=== PATIENT | female | born 1945 | race Caucasian/White ===

== ENCOUNTER 2017-10-05 13:42 | Emergency (ER) | payer MEDICARE ==
[2017-10-05] MEDS ORDERED: XYLOCAINE 1% HCL 20 ML MDV ONE (14:02)
[2017-10-05] MEDS ORDERED: Adacel Vial IM ONE (14:02)
--- NOTE | 2017-10-05 14:02 | ERPHSYRPT ---
- History of Present Illness Time Seen by Provider: 10/05/17 13:56 Source: patient Exam Limitations: no limitations Physician History: Pt states, she was moving a chalk board at home, lost the audiovisual tech, and it fell on her left lower leg. She denies other injury or complaints, not sure about her tetanus status. Method of Injury: incised Occurred: just prior to arrival Quality: constant Severity of Pain-Max: mild Severity of Pain-Current: mild Lower Extremities Pain: leg: left Modifying Factors: Improves With: movement Associated Symptoms: none Allergies/Adverse Reactions: No Known Drug Allergies Allergy (Verified 10/05/17 13:51) Home Medications: Carvedilol [Coreg] 3.125 mg PO BID 02/05/12 [History] PANTOPRAZOLE 40 mg Tablet [Protonix 40MG Tablet] 40 mg PO DAILY 02/05/12 [ History] Sertraline HCl 100 mg PO HS 10/05/17 [History] - Review of Systems Constitutional: No Symptoms Musculoskeletal: Other (laceration to left lower leg) All Other Systems: Reviewed and Negative - Past Medical History Pertinent Past Medical History: Yes Neurological History: No Pertinent History ENT History: No Pertinent History Cardiac History: High Cholesterol, Hypertension Respiratory History: No Pertinent History Endocrine Medical History: No Pertinent History Musculoskeletal History: No Pertinent History GI Medical History: GERD, Other History: No Pertinent History Psycho-Social History: No Pertinent History Female Reproductive Disorders: No Pertinent History Other Medical History: constipation,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 - Past Surgical History Past Surgical History: Yes Neuro Surgical History: No Pertinent History Cardiac: No Pertinent History Respiratory: No Pertinent History Gastrointestinal: No Pertinent History Genitourinary: No Pertinent History Musculoskeletal: No Pertinent History Female Surgical History: Hysterectomy - Social History Smoking Status: Never smoker Exposure to second hand smoke: Yes Drug Use: none - Nursing Vital Signs Nursing Vital Signs: Initial Vital Signs Temperature 98.7 F 10/05/17 13:44 Pulse Rate 68 10/05/17 13:44 Respiratory Rate 16 10/05/17 13:44 Blood Pressure 172/83 10/05/17 13:44 O2 Sat by Pulse Oximetry 97 10/05/17 13:44 Pain Scale Pain Intensity 4 - Physical Exam General Appearance: no apparent distress Eyes, Ears, Nose, Throat Exam: normal ENT inspection Neck Exam: normal inspection, non-tender Cardiovascular/Respiratory Exam: chest non-tender, normal breath sounds, regular rate/rhythm, heart sounds normal, no ecchymosis Gastrointestinal/Abdominal Exam: non-tender, soft Back Exam: normal inspection, No CVA tenderness Legs Exam: left leg: soft tissue tenderness (3 superficial lacerations, abrasions over the upper hernandez, 1 deeper, 2 cm laceration across the lower hernandez, no deformity, large hematoma or bleeding, no sign of tendon or neurovascular injury.) Neuro/Tendon Exam: normal sensation, normal motor functions Mental Status Exam: alert, oriented x 3 Skin Exam: normal color, warm, dry SpO2 Interpretation: normal Oxygen Delivery: Room Air Procedures - Laceration/Wound Repair Left Anterior Ankle Wound Location: Left, lower leg Wound Length (cm): 2 Wound's Depth, Shape: into muscle, linear Wound Explored: clean Irrigated: Yes Hibiclens Prep: No Anesthesia: local, 1% Lidocaine Volume Anesthetic (ccs): 5 Wound Repaired With: sutures Suture Size/Type: 4-0, ethilon Number of Sutures: 4 Layer Closure?: No Sterile Dressing Applied?: Yes Splint Applied?: No Sling Applied?: No Progress: 10/05/17 14:41 Laceration extended to the fascia, resulting in about 1 cm small laceration onto the muscular fascia, no significant deep bleeding noted, patient tolerated procedure well. - Course Nursing assessment & vital signs reviewed: Yes - Radiology Exams Left Lower Leg X-ray Interpretation: Interpreted by me, Negative Ordered Tests: Active Orders 24 hr Category Date Time Status Wound Care STAT Care 10/05/17 13:56 Active LOWER LEG Stat Exams 10/05/17 13:57 Completed Medication Summary Discontinued Medications Generic Name Dose Route Start Last Admin Trade Name Freq PRN Reason Stop Dose Admin Diphtheria/Tetanus/Acell Pertussis 0.5 ml 10/05/17 13:56 10/05/17 14:08 Adacel Vial IM 10/05/17 13:57 0.5 ml .ONCE ONE Administration Diphtheria/Tetanus/Acell Pertussis Confirm 10/05/17 14:02 Adacel Vial Administered 10/05/17 14:03 Dose 0.5 ml IM .STK-MED ONE Ibuprofen 400 mg 10/05/17 14:37 Motrin 400 Mg PO 10/05/17 14:38 STAT ONE Lidocaine HCl 5 ml 10/05/17 13:56 Xylocaine 1% Hcl 20 Ml Mdv IJ 10/05/17 13:57 STAT ONE Lidocaine HCl Confirm 10/05/17 14:02 Xylocaine 1% Hcl 20 Ml Mdv Administered 10/05/17 14:03 Dose 5 ml .ROUTE .STK-MED ONE - Progress Progress: improved Progress Note: 10/05/17 14:42 Pt has been stable, no severe pain or distress. 10/05/17 14:42 I instructed her to rest x 3-4 days with elevated leg, apply ice to leg, follow up with her doctor in 3-4 days for wound check, removal of the sutures after 2 weeks. Return if severe pain, swelling, redness, or fever> 102 F! Counseled pt/family regarding: diagnosis, need for follow-up, rad results - Departure Time of Disposition: 14:44 Departure Disposition: Home Clinical Impression: Laceration of leg Qualifiers: Encounter type: initial encounter Laterality: left Qualified Code(s): S81.812A - Laceration without foreign body, left lower leg, initial encounter Condition: Stable Critical Care Time: No Referrals: REBECCA ARREDONDO MD [Primary Care Provider] - Instructions: Laceration Repair With Stitches (DC) Additional Instructions: Rest with elevated leg x 3-4 days, apply ice to swelling, return if severe pain , swelling, redness, discharge or fever> 102 F, removal of the sutures after 2 weeks!
[2017-10-05] MEDS: Adacel Vial IM ONE (14:08)
--- NOTE | 2017-10-05 14:20 | XRAY ---
Indication: Laceration. Comparison: None 2 views of the left lower leg demonstrates overlying bandage material limiting exam. Small posterior heel spur and partially visualized forefoot fixation plate/screws. No bony, articular, or soft tissue abnormalities.
[2017-10-05] MEDS: XYLOCAINE 1% HCL 20 ML MDV IJ ONE (14:50)
[2017-10-05] MEDS: MOTRIN 400 MG PO ONE (14:50)
[2017-10-05] MEDS ORDERED: MOTRIN 400 MG ONE (14:51)
[2017-10-05 14:52] VITALS: BP 144/66; PULSE 64; O2SAT 99
== END 2017-10-05 15:03 | disposition home or self-care (01) ==
LOC: ED 13:42
DX: S81.812A Laceration without foreign body, left lower leg, initial encounter (principal); W22.8XXA Striking against or struck by other objects, initial encounter; Y92.009 Unspecified place in unspecified non-institutional (private) residence as the place of occurrence of the external cause; I10 Essential (primary) hypertension; K21.9 Gastro-esophageal reflux disease without esophagitis; Z85.828 Personal history of other malignant neoplasm of skin
CPT/HCPCS: 12001; 73590; 90471; 90715; 96372; 99284; A9270-GY

== ENCOUNTER 2023-05-12 21:49 | Observation (INO) | payer MEDICARE ==
--- NOTE | 2023-05-12 22:32 | ERPHSYRPT ---
- History of Present Illness Time Seen by Provider: 05/12/23 22:00 Source: patient Exam Limitations: no limitations Patient Subjective Stated Complaint: nauseated for 2 months worsening today. weight loss 30 pounds in 2 months. patient passed out for a few seconds while g etting onto ambulance cart. came back to immediately when laid down per ambulance personel Triage Nursing Assessment: hx of alzheimers. pt able to answer questions but was dx 7 years ago. pt actively vomiting and c/o nausea. when vomited in er room, pt began to lose consciousness but when bed put back down, patient Physician History: Patient is a 77-year-old female with history of Alzheimer's diagnosed 5 years ago that has gotten significantly worse over the past 2 to 3 months presents to our ED for evaluation of nausea vomiting and diarrhea. Patient's at the bedside. Patient's states that she had a similar episode several months back. Patient went to [facility] at that time. Patient was found to be profoundly dehydrated. states patient's p.o. has significantly decreased. He attributes this to her Alzheimer's. Patient now requires 24-hour care. No associated fevers. No trauma. No rash. Symptoms are mild to moderate in intensity. No specific worsening or improving factors. Patient voices no other complaints or concerns at this time. Per report patient had an episode of syncope just prior to arrival. Portions of this note were created with voice recognition technology. There may be grammatical, spelling, punctuation or sound alike errors Timing/Duration: today Severity: moderate Modifying Factors: Improves With: nothing Associated Symptoms: denies symptoms Allergies/Adverse Reactions: No Known Drug Allergies Allergy (Verified 10/05/17 13:51) Home Medications: PANTOPRAZOLE 40 mg Tablet [Protonix 40MG Tablet] 40 mg PO DAILY 02/05/12 [History] carvediloL [Coreg] 3.125 mg PO BID 02/05/12 [History] Sertraline HCl 100 mg PO HS 10/05/17 [History] Hx Tetanus, Diphtheria Vaccination/Date Given: Yes Hx Influenza Vaccination/Date Given: Yes Hx Pneumococcal Vaccination/Date Given: Yes Immunizations Up to Date: Yes Travel Risk - International Travel Have you traveled outside of the country in past 3 weeks: No - Coronavirus Screening Are you exhibiting any of the following symptoms?: Yes Symptoms: Vomiting/Diarrhea - Vaccine Status Have you recieved a Covid-19 vaccination: Yes Regional Driver: [employer] - Vaccination Dates Date of 2cond Vaccination (if applicable): 2020 - Review of Systems Constitutional: No Symptoms, No Fever, No Chills Eyes: No Symptoms Ears, Nose, & Throat: No Symptoms Respiratory: No Symptoms, No Cough, No Dyspnea Cardiac: No Symptoms, No Chest Pain, No Edema, No Syncope Abdominal/Gastrointestinal: No Symptoms, No Abdominal Pain, No Nausea, No Vomiting, No Diarrhea Genitourinary Symptoms: No Symptoms, No Dysuria Musculoskeletal: No Symptoms, No Back Pain, No Neck Pain Skin: No Symptoms, No Rash Neurological: No Symptoms, No Dizziness, No Focal Weakness, No Sensory Changes Psychological: No Symptoms Endocrine: No Symptoms Hematologic/Lymphatic: No Symptoms Immunological/Allergic: No Symptoms All Other Systems: Reviewed and Negative - Past Medical History Pertinent Past Medical History: Yes Neurological History: No Pertinent History ENT History: No Pertinent History Cardiac History: High Cholesterol, Hypertension Respiratory History: No Pertinent History Endocrine Medical History: No Pertinent History Musculoskeletal History: No Pertinent History GI Medical History: GERD, Other History: No Pertinent History Psycho-Social History: No Pertinent History Female Reproductive Disorders: No Pertinent History Other Medical History: constipation,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 - Past Surgical History Past Surgical History: Yes Neuro Surgical History: No Pertinent History Cardiac: No Pertinent History Respiratory: No Pertinent History Gastrointestinal: No Pertinent History Genitourinary: No Pertinent History Musculoskeletal: No Pertinent History Female Surgical History: Hysterectomy Other Surgical History: tear duct removed - Social History Smoking Status: Never smoker Exposure to second hand smoke: Yes Drug Use: none Patient Lives Alone: No - Nursing Vital Signs Nursing Vital Signs: Initial Vital Signs Temperature 97.1 F 05/12/23 21:52 Pulse Rate 53 L 05/12/23 21:52 Respiratory Rate 18 05/12/23 21:52 Blood Pressure 193/71 05/12/23 21:52 O2 Sat by Pulse Oximetry 97 05/12/23 21:52 Pain Scale Pain Intensity 0 - Physical Exam General Appearance: no apparent distress, alert Eye Exam: PERRL/EOMI, eyes nml inspection Ears, Nose, Throat Exam: normal ENT inspection, TMs normal, pharynx normal, moist mucous membranes Neck Exam: normal inspection, non-tender, supple, full range of motion Respiratory Exam: normal breath sounds, lungs clear, No respiratory distress Cardiovascular Exam: regular rate/rhythm, normal heart sounds, normal peripheral pulses Gastrointestinal/Abdomen Exam: soft, normal bowel sounds, No tenderness, No mass Back Exam: normal inspection, normal range of motion, No CVA tenderness, No vertebral tenderness Extremity Exam: normal inspection, normal range of motion, pelvis stable Neurologic Exam: alert, oriented x 3, cooperative, normal mood/affect, nml cerebellar function, nml station & gait, sensation nml, No motor deficits Skin Exam: normal color, warm, dry, No rash Lymphatic Exam: No adenopathy SpO2 Interpretation: normal SpO2: 97 O2 Delivery: Room Air - Course Nursing assessment & vital signs reviewed: Yes Ordered Tests: Active Orders 24 hr Category Date Time Status IV Insertion STAT Care 05/12/23 22:27 Active Telemetry q4h Care 05/12/23 23:31 Active CBC W DIFF Stat Lab 05/12/23 22:57 Completed CMP Stat Lab 05/12/23 22:57 Completed CULTURE,URINE Stat Lab 05/12/23 23:21 Received LIPASE Stat Lab 05/12/23 22:57 Completed TROPONIN Q4H Lab 05/12/23 22:57 Completed TROPONIN Q4H Lab 05/13/23 02:30 Ordered TROPONIN Q4H Lab 05/13/23 06:30 Ordered UA W/RFX UR CULTURE Stat Lab 05/12/23 23:21 Completed Medication Summary Generic Name Dose Route Start Last Admin Trade Name Freq PRN Reason Stop Dose Admin Sodium Chloride 1,000 mls @ 100 mls/hr 05/12/23 22:30 05/12/23 23:15 Sodium Chloride 0.9% 1000 Ml IV 06/11/23 22:29 100 mls/hr .Q10H AKASH Administration Potassium Chloride 20 meq in 100 mls @ 50 mls/hr 05/12/23 23:45 05/12/23 23:40 Potassium Chloride 20 Meq In Water 100ml IV 05/13/23 03:44 50 mls/hr Q2H AKASH Administration Magnesium Sulfate/Dextrose 100 mls @ 100 mls/hr 05/12/23 23:45 05/12/23 23:39 Magnesium 1 Gm / 100 Ml D5w IV 05/13/23 01:44 100 mls/hr Q1H AKASH Administration Lab/Rad Data: Laboratory Result Diagrams 05/12/23 22:57 05/12/23 22:57 Laboratory Results 05/12/23 05/12/23 05/12/23 Range/Units 23:21 23:00 22:57 WBC (4.0-10.5) x10^3/uL RBC (4.1-5.4) x10^6/uL Hgb (12.0-16.0) g/dL Hct (35-47) % MCV (78-100) fL MCH (26-32) pg MCHC (32-36) g/dL RDW (11.5-14.0) % Plt Count (150-450) x10^3/uL MPV (7.5-11.0) fL Gran % (36.0-66.0) % Immature Gran % (Auto) (0.00-0.4) % Nucleat RBC Rel Count (0.00-0.1) % Eos # (Auto) (0-0.5) x10^3/uL Immature Gran # (Auto) (0.00-0.03) x10^3u/L Absolute Lymphs (auto) (1.0-4.6) x10^3/uL Absolute Monos (auto) (0.0-1.3) x10^3/uL Absolute Nucleated RBC (0.00-0.01) x10^3u/L Lymphocytes % (24.0-44.0) % Monocytes % (0.0-12.0) % Eosinophils % (0.00-5.0) % Basophils % (0.0-0.4) % Absolute Granulocytes (1.4-6.9) x10^3/uL Basophils # (0-0.4) x10^3/uL Sodium (137-145) mmol/L Potassium (3.5-5.1) mmol/L Chloride (98-107) mmol/L Carbon Dioxide (22-30) mmol/L Anion Gap (5-15) MEQ/L BUN (7-17) mg/dL Creatinine (0.52-1.04) mg/dL Estimated GFR ML/MIN Glucose (74-106) mg/dL Calcium (8.4-10.2) mg/dL Total Bilirubin (0.2-1.3) mg/dL AST (14-36) U/L ALT (0-35) U/L Alkaline Phosphatase (38-126) U/L Troponin I 0.014 (0.000-0.034) ng/mL Serum Total Protein (6.3-8.2) g/dL Albumin (3.5-5.0) g/dL Lipase (23-300) U/L Urine Color Yellow (Yellow) Urine Appearance Clear (Clear) Urine pH 7.5 (4.6-8.0) Ur Specific [place] 1.010 (1.005-1.030) Urine Protein 30 (Negative) Urine Glucose (UA) Negative (Negative) mg/dL Urine Ketones Negative (Negative) Urine Blood Trace (Negative) Urine Nitrite Positive A (Negative) Urine Bilirubin Negative (Negative) Urine Urobilinogen 0.2 (0.2) mg/dL Ur Leukocyte Esterase Small A (Negative) U Hyaline Cast (Auto) 3-5 A (0-2) /LPF Urine Microscopic RBC 3-5 (0-5) /HPF Urine Microscopic WBC 21-50 A (0-5) /HPF Ur Epithelial Cells None Seen (None Seen) /HPF Urine Bacteria Many A (None Seen) /HPF Urine Culture Reflexed YES (NO) Influenza Type A Ag NEGATIVE (NEGATIVE) Influenza Type B Ag NEGATIVE (NEGATIVE) RSV (PCR) NEGATIVE (NEGATIVE) SARS-CoV-2 (PCR) NEGATIVE (NEGATIVE) 05/12/23 05/12/23 Range/Units 22:57 22:57 WBC 11.5 H (4.0-10.5) x10^3/uL RBC 4.64 (4.1-5.4) x10^6/uL Hgb 13.3 (12.0-16.0) g/dL Hct 39.6 (35-47) % MCV 85.3 (78-100) fL MCH 28.7 (26-32) pg MCHC 33.6 (32-36) g/dL RDW 13.5 (11.5-14.0) % Plt Count 169 (150-450) x10^3/uL MPV 10.4 (7.5-11.0) fL Gran % 78.9 H (36.0-66.0) % Immature Gran % (Auto) 0.4 (0.00-0.4) % Nucleat RBC Rel Count 0.0 (0.00-0.1) % Eos # (Auto) 0.20 (0-0.5) x10^3/uL Immature Gran # (Auto) 0.05 H (0.00-0.03) x10^3u/L Absolute Lymphs (auto) 1.53 (1.0-4.6) x10^3/uL Absolute Monos (auto) 0.57 (0.0-1.3) x10^3/uL Absolute Nucleated RBC 0.00 (0.00-0.01) x10^3u/L Lymphocytes % 13.3 L (24.0-44.0) % Monocytes % 5.0 (0.0-12.0) % Eosinophils % 1.7 (0.00-5.0) % Basophils % 0.7 (0.0-0.4) % Absolute Granulocytes 9.07 H (1.4-6.9) x10^3/uL Basophils # 0.08 (0-0.4) x10^3/uL Sodium 134 L (137-145) mmol/L Potassium 2.7 L* (3.5-5.1) mmol/L Chloride 98 (98-107) mmol/L Carbon Dioxide 33 H (22-30) mmol/L Anion Gap 5.9 (5-15) MEQ/L BUN 6 L (7-17) mg/dL Creatinine 0.52 (0.52-1.04) mg/dL Estimated GFR 95.0 ML/MIN Glucose 169 H (74-106) mg/dL Calcium 9.0 (8.4-10.2) mg/dL Total Bilirubin 0.70 (0.2-1.3) mg/dL AST 62 H (14-36) U/L ALT 36 H (0-35) U/L Alkaline Phosphatase 133 H (38-126) U/L Troponin I (0.000-0.034) ng/mL Serum Total Protein 6.6 (6.3-8.2) g/dL Albumin 3.5 (3.5-5.0) g/dL Lipase 114 (23-300) U/L Urine Color (Yellow) Urine Appearance (Clear) Urine pH (4.6-8.0) Ur Specific [place] (1.005-1.030) Urine Protein (Negative) Urine Glucose (UA) (Negative) mg/dL Urine Ketones (Negative) Urine Blood (Negative) Urine Nitrite (Negative) Urine Bilirubin (Negative) Urine Urobilinogen (0.2) mg/dL Ur Leukocyte Esterase (Negative) U Hyaline Cast (Auto) (0-2) /LPF Urine Microscopic RBC (0-5) /HPF Urine Microscopic WBC (0-5) /HPF Ur Epithelial Cells (None Seen) /HPF Urine Bacteria (None Seen) /HPF Urine Culture Reflexed (NO) Influenza Type A Ag (NEGATIVE) Influenza Type B Ag (NEGATIVE) RSV (PCR) (NEGATIVE) SARS-CoV-2 (PCR) (NEGATIVE) - Progress Progress: improved Progress Note: 69-year-old female presents emergency department for evaluation of nausea vomiting diarrhea generalized weakness. Physical exam reveals a 77-year-old female complaining of nausea. No abdominal pain. Patient conversant. at bedside. He reports patient has a baseline dementia. Workup reveals a potassium of 2.7. IV piggyback potassium ordered. Magnesium replacement ordered as well. IV fluids infusing. requesting home health prior to discharge. Case discussed with Dr. Bhargavi Good who accepts admission to observation at 12:18 AM. Portions of this note were created with voice recognition technology. There may be grammatical, spelling, punctuation or sound alike errors Complexity of problem addressed is moderate acute complicated No critical care time Complexity of data reviewed and analyzed is extensive. Test ordered test reviewed. Results analyzed and correlated clinically with history and physical examination. Management discussed with hospitalist Dr. Bhargavi Good who accepts admission to observation at 12:18 AM. Risk complication and a risk of morbidity/mortality of patient management is high. Patient requires hospitalization for further evaluation and treatment. Portions of this note were created with voice recognition technology. There may be grammatical, spelling, punctuation or sound alike errors Vital stable. Time spent admit patient is approximately 15 minutes. Plan of care established for shared decision making. No social determinants of health present impede follow-up. Portions of this note were created with voice recognition technology. There may be grammatical, spelling, punctuation or sound alike errors 05/13/23 00:21 Counseled pt/family regarding: lab results, diagnosis - Departure Departure Disposition: Observation Clinical Impression: Nausea vomiting and diarrhea, Syncope, Generalized weakness, UTI (urinary tract infection) Condition: Stable Critical Care Time: No Referrals: REBECCA ARREDONDO MD [Primary Care Provider] - Follow up/PCP as directed
[2023-05-12 22:59] LABS: Absolute Neutrophil Ct (ANC) 9.07 x10^3/uL (1.4-6.9); BASOPHIL % 0.7 % (0.0-0.4); Basophil (Absolute #) 0.08 x10^3/uL (0-0.4); Eosinophil % 1.7 % (0.00-5.0); Hematocrit 39.6 % (35-47); Hemoglobin 13.3 g/dL (12.0-16.0); IMMATURE GRAN # 0.05 x10^3u/L (0.00-0.03); IMMATURE GRAN % 0.4 % (0.00-0.4); Lymphocyte (Absolute #) 1.53 x10^3/uL (1.0-4.6); Lymphocytes % 13.3 % (24.0-44.0); Mean Cell Volume 85.3 fL (78-100); Mean Corpuscular Hemoglobin 28.7 pg (26-32); Mean Corpuscular Hgb Concent. 33.6 g/dL (32-36); Mean Platelet Volume 10.4 fL (7.5-11.0); Monocyte (Absolute #) 0.57 x10^3/uL (0.0-1.3); Neutrophil % 78.9 % (36.0-66.0); Platelet Count 169 x10^3/uL (150-450); Red Blood Count 4.64 x10^6/uL (4.1-5.4); Red Cell Distribution Width 13.5 % (11.5-14.0); White Blood Count 11.5 x10^3/uL (4.0-10.5)
[2023-05-12 23:13] LABS: ALBUMIN 3.5 g/dL (3.5-5.0); ANION GAP 5.9 MEQ/L (5-15); BILIRUBIN,TOTAL 0.7 mg/dL (0.2-1.3); Creatinine 1 0.52 mg/dL (0.52-1.04); Total Protein 6.6 g/dL (6.3-8.2)
[2023-05-12] MEDS: Sodium Chloride 0.9% 1000 ML 1,000 ML IV SCH (23:15)
[2023-05-12 23:28] LABS: Potassium 2.7 mmol/L (3.5-5.1)
[2023-05-12] MEDS: Magnesium 1 Gm / 100 Ml D5W*** 100 ML IV SCH (23:39)
[2023-05-12 23:40] LABS: INFLUENZA A NEGATIVE (NEGATIVE); INFLUENZA B NEGATIVE (NEGATIVE); RESPIRATORY SYNCTIAL VIRUS NEGATIVE (NEGATIVE); SARS-CoV-2 Xpert Express NEGATIVE (NEGATIVE)
[2023-05-12] MEDS: POTASSIUM CHLORIDE 20 mEq IN WATER 100ML 20 MEQ/100 ML BAG IV SCH (23:40)
[2023-05-12 23:54] LABS: Appearance Clear (Clear); Bacteria Many /HPF (None Seen); Bilirubin Negative (Negative); Blood Trace (Negative); Epithelial Cells None Seen /HPF (None Seen); Glucose, Urine Negative (Negative); Ketones Negative (Negative); Leukocyte Esterase Small (Negative); Nitrite Positive (Negative); Ph 7.5 (4.6-8.0); Protein,Urine Dip 30 (Negative); Urobilinogen 0.2 mg/dL (0.2); WBC 21-50 /HPF (0-5)
[2023-05-13 00:08] LABS: ADD URINE CULTURE? YES (NO)
--- NOTE | 2023-05-13 00:22 | PCM.HP ---
History of Present Illness - Chief Complaint Chief Complaint: Nausea, Vomiting, Diarrhea History of Present Illness: is a 77 year old female with Alzheimer's dementia diagnosed 5 years ago who presents with nausea, vomiting, diarrhea and a possible UTI. Per , the patient had a similar episodes a few months ago and was found to have profound dehydration. Pt requires 24-hr care. No fevers, rash, trauma. - Review of Systems Constitutional: No Fever, No Chills Eyes: No Symptoms Ears, Nose, & Throat: No Symptoms Respiratory: No Cough, No Short Of Breath Cardiac: No Chest Pain, No Edema, No Syncope Abdominal/Gastrointestinal: No Abdominal Pain, No Nausea, No Vomiting, No Diarrhea Genitourinary Symptoms: No Dysuria Musculoskeletal: No Back Pain, No Neck Pain Skin: No Rash Neurological: No Dizziness, No Focal Weakness, No Sensory Changes Psychological: No Symptoms Endocrine: No Symptoms Hematologic/Lymphatic: No Symptoms Immunological/Allergic: No Symptoms Medications & Allergies Home Medications: Home Medication List PANTOPRAZOLE 40 mg Tablet [Protonix 40MG Tablet] 40 mg PO DAILY 02/05/12 [History Confirmed 10/05/17] carvediloL [Coreg] 3.125 mg PO BID 02/05/12 [History Confirmed 10/05/17] Sertraline HCl 100 mg PO HS 10/05/17 [History Confirmed 10/05/17] Allergies/Adverse Reactions: Allergies Allergy/AdvReac Type Severity Reaction Status Date / Time No Known Drug Allergies Allergy Verified 10/05/17 13:51 - Past Medical History Past Medical History: Yes Neurological History: No Pertinent History ENT History: No Pertinent History Cardiac History: High Cholesterol, Hypertension Respiratory History: No Pertinent History Endocrine Medical History: No Pertinent History Musculoskelatal History: No Pertinent History GI Medical History: GERD, Other History: No Pertinent History Pyscho-Social History: No Pertinent History Reproductive Disorders: No Pertinent History Comment: constipation,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 - Past Surgical History Past Surgical History: Yes Neuro Surgical History: No Pertinent History Cardiac History: No Pertinent History Respiratory Surgery: No Pertinent History GI Surgical History: No Pertinent History Genitourinary Surgical Hx: No Pertinent History Musculskeletal Surgical Hx: No Pertinent History Female Surgical History: Hysterectomy Other Surgical History: tear duct removed - Social History Smoking Status: Never smoker Exposure to second hand smoke: Yes Alcohol: None Drug Use: none - Physical Exam Vital Signs: Vital Signs - 24 hr Temp Pulse Resp BP BP Pulse Ox 05/12/23 23:48 97 05/12/23 23:26 55 L 18 184/78 97 05/12/23 23:25 56 L 18 184/78 97 05/12/23 21:52 97.1 F 53 L 18 193/71 97 General Appearance: no apparent distress, alert Neurologic Exam: alert, oriented x 3, cooperative, normal mood/affect, nml cerebellar function, nml station & gait, sensation nml, No motor deficits Eye Exam: PERRL/EOMI, eyes nml inspection Ears, Nose, Throat Exam: normal ENT inspection, TMs normal, pharynx normal, moist mucous membranes Neck Exam: normal inspection, non-tender, supple, full range of motion Respiratory Exam: normal breath sounds, lungs clear, No respiratory distress Cardiovascular Exam: regular rate/rhythm, normal heart sounds, normal peripheral pulses Gastrointestinal/Abdomen Exam: soft, normal bowel sounds, No tenderness, No mass Back Exam: normal inspection, normal range of motion, No CVA tenderness, No vertebral tenderness Extremity Exam: normal inspection, normal range of motion, pelvis stable Skin Exam: normal color, warm, dry, No rash Lymphatic Exam: No adenopathy Results - Labs Lab/Micro Results: Lab Results-Last 24 Hours 05/12/23 05/12/23 05/12/23 Range/Units 22:57 22:57 22:57 WBC 11.5 H (4.0-10.5) x10^3/uL RBC 4.64 (4.1-5.4) x10^6/uL Hgb 13.3 (12.0-16.0) g/dL Hct 39.6 (35-47) % MCV 85.3 (78-100) fL MCH 28.7 (26-32) pg MCHC 33.6 (32-36) g/dL RDW 13.5 (11.5-14.0) % Plt Count 169 (150-450) x10^3/uL MPV 10.4 (7.5-11.0) fL Gran % 78.9 H (36.0-66.0) % Immature Gran % (Auto) 0.4 (0.00-0.4) % Nucleat RBC Rel Count 0.0 (0.00-0.1) % Eos # (Auto) 0.20 (0-0.5) x10^3/uL Immature Gran # (Auto) 0.05 H (0.00-0.03) x10^3u/L Absolute Lymphs (auto) 1.53 (1.0-4.6) x10^3/uL Absolute Monos (auto) 0.57 (0.0-1.3) x10^3/uL Absolute Nucleated RBC 0.00 (0.00-0.01) x10^3u/L Lymphocytes % 13.3 L (24.0-44.0) % Monocytes % 5.0 (0.0-12.0) % Eosinophils % 1.7 (0.00-5.0) % Basophils % 0.7 (0.0-0.4) % Absolute Granulocytes 9.07 H (1.4-6.9) x10^3/uL Basophils # 0.08 (0-0.4) x10^3/uL Sodium 134 L (137-145) mmol/L Potassium 2.7 L* (3.5-5.1) mmol/L Chloride 98 (98-107) mmol/L Carbon Dioxide 33 H (22-30) mmol/L Anion Gap 5.9 (5-15) MEQ/L BUN 6 L (7-17) mg/dL Creatinine 0.52 (0.52-1.04) mg/dL Estimated GFR 95.0 ML/MIN Glucose 169 H (74-106) mg/dL Calcium 9.0 (8.4-10.2) mg/dL Total Bilirubin 0.70 (0.2-1.3) mg/dL AST 62 H (14-36) U/L ALT 36 H (0-35) U/L Alkaline Phosphatase 133 H (38-126) U/L Troponin I 0.014 (0.000-0.034) ng/mL Serum Total Protein 6.6 (6.3-8.2) g/dL Albumin 3.5 (3.5-5.0) g/dL Lipase 114 (23-300) U/L Urine Color (Yellow) Urine Appearance (Clear) Urine pH (4.6-8.0) Ur Specific [place] (1.005-1.030) Urine Protein (Negative) Urine Glucose (UA) (Negative) mg/dL Urine Ketones (Negative) Urine Blood (Negative) Urine Nitrite (Negative) Urine Bilirubin (Negative) Urine Urobilinogen (0.2) mg/dL Ur Leukocyte Esterase (Negative) U Hyaline Cast (Auto) (0-2) /LPF Urine Microscopic RBC (0-5) /HPF Urine Microscopic WBC (0-5) /HPF Ur Epithelial Cells (None Seen) /HPF Urine Bacteria (None Seen) /HPF Urine Culture Reflexed (NO) Influenza Type A Ag (NEGATIVE) Influenza Type B Ag (NEGATIVE) RSV (PCR) (NEGATIVE) SARS-CoV-2 (PCR) (NEGATIVE) 05/12/23 05/12/23 Range/Units 23:00 23:21 WBC (4.0-10.5) x10^3/uL RBC (4.1-5.4) x10^6/uL Hgb (12.0-16.0) g/dL Hct (35-47) % MCV (78-100) fL MCH (26-32) pg MCHC (32-36) g/dL RDW (11.5-14.0) % Plt Count (150-450) x10^3/uL MPV (7.5-11.0) fL Gran % (36.0-66.0) % Immature Gran % (Auto) (0.00-0.4) % Nucleat RBC Rel Count (0.00-0.1) % Eos # (Auto) (0-0.5) x10^3/uL Immature Gran # (Auto) (0.00-0.03) x10^3u/L Absolute Lymphs (auto) (1.0-4.6) x10^3/uL Absolute Monos (auto) (0.0-1.3) x10^3/uL Absolute Nucleated RBC (0.00-0.01) x10^3u/L Lymphocytes % (24.0-44.0) % Monocytes % (0.0-12.0) % Eosinophils % (0.00-5.0) % Basophils % (0.0-0.4) % Absolute Granulocytes (1.4-6.9) x10^3/uL Basophils # (0-0.4) x10^3/uL Sodium (137-145) mmol/L Potassium (3.5-5.1) mmol/L Chloride (98-107) mmol/L Carbon Dioxide (22-30) mmol/L Anion Gap (5-15) MEQ/L BUN (7-17) mg/dL Creatinine (0.52-1.04) mg/dL Estimated GFR ML/MIN Glucose (74-106) mg/dL Calcium (8.4-10.2) mg/dL Total Bilirubin (0.2-1.3) mg/dL AST (14-36) U/L ALT (0-35) U/L Alkaline Phosphatase (38-126) U/L Troponin I (0.000-0.034) ng/mL Serum Total Protein (6.3-8.2) g/dL Albumin (3.5-5.0) g/dL Lipase (23-300) U/L Urine Color Yellow (Yellow) Urine Appearance Clear (Clear) Urine pH 7.5 (4.6-8.0) Ur Specific [place] 1.010 (1.005-1.030) Urine Protein 30 (Negative) Urine Glucose (UA) Negative (Negative) mg/dL Urine Ketones Negative (Negative) Urine Blood Trace (Negative) Urine Nitrite Positive A (Negative) Urine Bilirubin Negative (Negative) Urine Urobilinogen 0.2 (0.2) mg/dL Ur Leukocyte Esterase Small A (Negative) U Hyaline Cast (Auto) 3-5 A (0-2) /LPF Urine Microscopic RBC 3-5 (0-5) /HPF Urine Microscopic WBC 21-50 A (0-5) /HPF Ur Epithelial Cells None Seen (None Seen) /HPF Urine Bacteria Many A (None Seen) /HPF Urine Culture Reflexed YES (NO) Influenza Type A Ag NEGATIVE (NEGATIVE) Influenza Type B Ag NEGATIVE (NEGATIVE) RSV (PCR) NEGATIVE (NEGATIVE) SARS-CoV-2 (PCR) NEGATIVE (NEGATIVE) Assessment/Plan (1) Nausea vomiting and diarrhea Current Visit: Yes Status: Acute Assessment & Plan: Likely viral vs due to a possible UTI 1. IVF, Zofran PRN 2. Received rocephin in the ED 3. Follow urine culture Code(s): R11.2 - NAUSEA WITH VOMITING, UNSPECIFIED; R19.7 - DIARRHEA, UNSPECIFIED (2) Alzheimer's dementia Current Visit: Yes Status: Acute Assessment & Plan: 1. Consult SW in the AM for home health vs care home at time of discharge Code(s): G30.9 - ALZHEIMER'S DISEASE, UNSPECIFIED; F02.80 - DEM IN OTH DIS CLASSD ELSWHR,UNSP SEV,W/O BEH/PSYCH/MOOD/ANX (3) Alzheimer's dementia Current Visit: Yes Status: Acute Code(s): G30.9 - ALZHEIMER'S DISEASE, UNSPECIFIED; F02.80 - DEM IN OTH DIS CLASSD ELSWHR,UNSP SEV,W/O BEH/PSYCH/MOOD/ANX Telemedicine Encounter - Telemedicine Encounter Telemedicine Encounter: The entirety of this encounter was performed via Telemedicine"
[2023-05-13] MEDS ORDERED: ROCEPHIN 1 GM / 100 ML NaCl 1 GM/100 ML IVPB IV ONE (02:11)
[2023-05-13] MEDS: Zofran 4 MG/2 ML VIAL IV PRN (02:13)
[2023-05-13] MEDS: ROCEPHIN 1 GM / 100 ML NaCl 1 GM/100 ML IVPB IV ONE (02:17)
--- NOTE | 2023-05-13 05:16 | PCM.NOTE ---
Date and Time: 05/13/23 0516 Subjective Assessment: is a 77 year old female with HLD, GERN, and Alzheimer's dementia diagnosed 5 years ago who presents with nausea, vomiting, diarrhea and a possible UTI. Lab findings with WBC at 11.5, hyponatremia at 134, potassium at 2.7, transaminitis, and elevated trop at 0.102. UA suspicious for UTI. Patient admitted with UTI, hyponatremia, nausea/vomiting, transaminitis, and elevated troponin. Plan to hydrate, treat UTI with ceftriaxone empirically, and monitor trops and LFTs. CT head showing parasellar pneumocephalus, neuro consult pending. 05/13/23: Met with patient and bedside. Patient continues to endorse nausea, which has been going on for several months according to . Patient not eating/drinking much. states he has stage 4 colon cancer and having a very difficult time caring for patient at home. Discussed CT head findings showing parasellar pneumocephalus. Patient/ deny any recent trauma or neurosurgery. Will consult neurology for evaluation. Patient denies urinary symptoms, Ucult pending, will continue on ceftriaxone for now. <LAKHWINDER HOLLY - Last Filed: 05/13/23 12:47> Date and Time: 05/13/232013 <NELDA JOEL - Last Filed: 05/13/23 20:17> - Review of Systems Constitutional: No Symptoms Eyes: No Symptoms Ears, Nose, & Throat: No Symptoms Respiratory: No Symptoms Cardiac: No Symptoms Abdominal/Gastrointestinal: No Symptoms Genitourinary Symptoms: No Symptoms Musculoskeletal: No Symptoms Skin: No Symptoms Neurological: No Symptoms Psychological: No Symptoms Endocrine: No Symptoms Hematologic/Lymphatic: No Symptoms Immunological/Allergic: No Symptoms <LAKHWINDER HOLLY - Last Filed: 05/13/23 12:47> Objective Exam General Appearance: no apparent distress Neurologic Exam: alert, disoriented, confusion Skin Exam: normal color Wound Assessment: Skin/Wound Assessment Wound/Incision Assessment Start: 05/13/23 01:36 Text: Status: Active Freq: Q6H Protocol: Document 05/13/23 01:36 MP (Rec: 05/13/23 03:45 MP [id number]) Wound Photo Photo Taken No Eye Exam: PERRL Ears, Nose, Throat Exam: normal ENT inspection Neck Exam: normal inspection Respiratory Exam: normal breath sounds, lungs clear Cardiovascular Exam: regular rate/rhythm, normal heart sounds Gastrointestinal/Abdomen Exam: soft, normal bowel sounds Extremity Exam: normal inspection Back Exam: normal inspection Pelvic Exam: deferred Rectal Exam: deferred <LAKHWINDER HOLLY - Last Filed: 05/13/23 12:47> OBJECTIVE DATA Vital Signs: Vital Signs - 24 hr Temp Pulse Resp BP BP Pulse Ox 05/13/23 04:00 16 05/13/23 01:11 95.8 F 58 L 16 178/79 97 05/13/23 00:35 97 05/13/23 00:25 97 05/12/23 23:26 55 L 18 184/78 97 05/12/23 23:25 56 L 18 184/78 97 05/12/23 21:52 97.1 F 53 L 18 193/71 97 Pain Assessment - Last Documented Pain Intensity 0 Intake and Output: Intake & Output 05/10/23 05/11/23 05/12/23 05/13/23 11:59 11:59 11:59 11:59 Weight 50.1 kg Lab Results: Lab Results-Last 24 Hours 05/12/23 05/12/23 05/12/23 Range/Units 22:57 22:57 22:57 WBC 11.5 H (4.0-10.5) x10^3/uL RBC 4.64 (4.1-5.4) x10^6/uL Hgb 13.3 (12.0-16.0) g/dL Hct 39.6 (35-47) % MCV 85.3 (78-100) fL MCH 28.7 (26-32) pg MCHC 33.6 (32-36) g/dL RDW 13.5 (11.5-14.0) % Plt Count 169 (150-450) x10^3/uL MPV 10.4 (7.5-11.0) fL Gran % 78.9 H (36.0-66.0) % Immature Gran % (Auto) 0.4 (0.00-0.4) % Nucleat RBC Rel Count 0.0 (0.00-0.1) % Eos # (Auto) 0.20 (0-0.5) x10^3/uL Immature Gran # (Auto) 0.05 H (0.00-0.03) x10^3u/L Absolute Lymphs (auto) 1.53 (1.0-4.6) x10^3/uL Absolute Monos (auto) 0.57 (0.0-1.3) x10^3/uL Absolute Nucleated RBC 0.00 (0.00-0.01) x10^3u/L Lymphocytes % 13.3 L (24.0-44.0) % Monocytes % 5.0 (0.0-12.0) % Eosinophils % 1.7 (0.00-5.0) % Basophils % 0.7 (0.0-0.4) % Absolute Granulocytes 9.07 H (1.4-6.9) x10^3/uL Basophils # 0.08 (0-0.4) x10^3/uL Sodium 134 L (137-145) mmol/L Potassium 2.7 L* (3.5-5.1) mmol/L Chloride 98 (98-107) mmol/L Carbon Dioxide 33 H (22-30) mmol/L Anion Gap 5.9 (5-15) MEQ/L BUN 6 L (7-17) mg/dL Creatinine 0.52 (0.52-1.04) mg/dL Estimated GFR 95.0 ML/MIN Glucose 169 H (74-106) mg/dL Calcium 9.0 (8.4-10.2) mg/dL Total Bilirubin 0.70 (0.2-1.3) mg/dL AST 62 H (14-36) U/L ALT 36 H (0-35) U/L Alkaline Phosphatase 133 H (38-126) U/L Troponin I 0.014 (0.000-0.034) ng/mL Serum Total Protein 6.6 (6.3-8.2) g/dL Albumin 3.5 (3.5-5.0) g/dL Lipase 114 (23-300) U/L Urine Color (Yellow) Urine Appearance (Clear) Urine pH (4.6-8.0) Ur Specific [place] (1.005-1.030) Urine Protein (Negative) Urine Glucose (UA) (Negative) mg/dL Urine Ketones (Negative) Urine Blood (Negative) Urine Nitrite (Negative) Urine Bilirubin (Negative) Urine Urobilinogen (0.2) mg/dL Ur Leukocyte Esterase (Negative) U Hyaline Cast (Auto) (0-2) /LPF Urine Microscopic RBC (0-5) /HPF Urine Microscopic WBC (0-5) /HPF Ur Epithelial Cells (None Seen) /HPF Urine Bacteria (None Seen) /HPF Urine Culture Reflexed (NO) Influenza Type A Ag (NEGATIVE) Influenza Type B Ag (NEGATIVE) RSV (PCR) (NEGATIVE) SARS-CoV-2 (PCR) (NEGATIVE) 05/12/23 05/12/23 05/13/23 Range/Units 23:00 23:21 02:54 WBC (4.0-10.5) x10^3/uL RBC (4.1-5.4) x10^6/uL Hgb (12.0-16.0) g/dL Hct (35-47) % MCV (78-100) fL MCH (26-32) pg MCHC (32-36) g/dL RDW (11.5-14.0) % Plt Count (150-450) x10^3/uL MPV (7.5-11.0) fL Gran % (36.0-66.0) % Immature Gran % (Auto) (0.00-0.4) % Nucleat RBC Rel Count (0.00-0.1) % Eos # (Auto) (0-0.5) x10^3/uL Immature Gran # (Auto) (0.00-0.03) x10^3u/L Absolute Lymphs (auto) (1.0-4.6) x10^3/uL Absolute Monos (auto) (0.0-1.3) x10^3/uL Absolute Nucleated RBC (0.00-0.01) x10^3u/L Lymphocytes % (24.0-44.0) % Monocytes % (0.0-12.0) % Eosinophils % (0.00-5.0) % Basophils % (0.0-0.4) % Absolute Granulocytes (1.4-6.9) x10^3/uL Basophils # (0-0.4) x10^3/uL Sodium (137-145) mmol/L Potassium (3.5-5.1) mmol/L Chloride (98-107) mmol/L Carbon Dioxide (22-30) mmol/L Anion Gap (5-15) MEQ/L BUN (7-17) mg/dL Creatinine (0.52-1.04) mg/dL Estimated GFR ML/MIN Glucose (74-106) mg/dL Calcium (8.4-10.2) mg/dL Total Bilirubin (0.2-1.3) mg/dL AST (14-36) U/L ALT (0-35) U/L Alkaline Phosphatase (38-126) U/L Troponin I 0.102 H* (0.000-0.034) ng/mL Serum Total Protein (6.3-8.2) g/dL Albumin (3.5-5.0) g/dL Lipase (23-300) U/L Urine Color Yellow (Yellow) Urine Appearance Clear (Clear) Urine pH 7.5 (4.6-8.0) Ur Specific [place] 1.010 (1.005-1.030) Urine Protein 30 (Negative) Urine Glucose (UA) Negative (Negative) mg/dL Urine Ketones Negative (Negative) Urine Blood Trace (Negative) Urine Nitrite Positive A (Negative) Urine Bilirubin Negative (Negative) Urine Urobilinogen 0.2 (0.2) mg/dL Ur Leukocyte Esterase Small A (Negative) U Hyaline Cast (Auto) 3-5 A (0-2) /LPF Urine Microscopic RBC 3-5 (0-5) /HPF Urine Microscopic WBC 21-50 A (0-5) /HPF Ur Epithelial Cells None Seen (None Seen) /HPF Urine Bacteria Many A (None Seen) /HPF Urine Culture Reflexed YES (NO) Influenza Type A Ag NEGATIVE (NEGATIVE) Influenza Type B Ag NEGATIVE (NEGATIVE) RSV (PCR) NEGATIVE (NEGATIVE) SARS-CoV-2 (PCR) NEGATIVE (NEGATIVE) <LAKHWINDER HOLLY - Last Filed: 05/13/23 12:47> Vital Signs: Vital Signs - 24 hr Temp Pulse Resp BP BP BP Pulse Ox 05/13/23 16:00 98.6 F 67 16 114/55 95 05/13/23 11:13 97.7 F 63 16 96 05/13/23 10:55 61 137/63 05/13/23 06:36 97.9 F 65 16 147/70 99 05/13/23 04:00 96.7 F 65 16 129/63 95 05/13/23 01:11 95.8 F 58 L 16 178/79 97 05/13/23 00:35 97 05/13/23 00:25 97 05/12/23 23:26 55 L 18 184/78 97 05/12/23 23:25 56 L 18 184/78 97 05/12/23 21:52 97.1 F 53 L 18 193/71 97 Pain Assessment - Last Documented Pain Intensity 0 Intake and Output: Intake & Output 05/11/23 05/12/23 05/13/23 05/14/23 11:59 11:59 11:59 11:59 Intake Total 1040 1228 Output Total 850 200 Balance 190 1028 Weight 50.1 kg Lab Results: Lab Results-Last 24 Hours 05/12/23 05/12/23 05/12/23 Range/Units 22:57 22:57 22:57 WBC 11.5 H (4.0-10.5) x10^3/uL RBC 4.64 (4.1-5.4) x10^6/uL Hgb 13.3 (12.0-16.0) g/dL Hct 39.6 (35-47) % MCV 85.3 (78-100) fL MCH 28.7 (26-32) pg MCHC 33.6 (32-36) g/dL RDW 13.5 (11.5-14.0) % Plt Count 169 (150-450) x10^3/uL MPV 10.4 (7.5-11.0) fL Gran % 78.9 H (36.0-66.0) % Immature Gran % (Auto) 0.4 (0.00-0.4) % Nucleat RBC Rel Count 0.0 (0.00-0.1) % Eos # (Auto) 0.20 (0-0.5) x10^3/uL Immature Gran # (Auto) 0.05 H (0.00-0.03) x10^3u/L Absolute Lymphs (auto) 1.53 (1.0-4.6) x10^3/uL Absolute Monos (auto) 0.57 (0.0-1.3) x10^3/uL Absolute Nucleated RBC 0.00 (0.00-0.01) x10^3u/L Lymphocytes % 13.3 L (24.0-44.0) % Monocytes % 5.0 (0.0-12.0) % Eosinophils % 1.7 (0.00-5.0) % Basophils % 0.7 (0.0-0.4) % Absolute Granulocytes 9.07 H (1.4-6.9) x10^3/uL Basophils # 0.08 (0-0.4) x10^3/uL Sodium 134 L (137-145) mmol/L Potassium 2.7 L* (3.5-5.1) mmol/L Chloride 98 (98-107) mmol/L Carbon Dioxide 33 H (22-30) mmol/L Anion Gap 5.9 (5-15) MEQ/L BUN 6 L (7-17) mg/dL Creatinine 0.52 (0.52-1.04) mg/dL Estimated GFR 95.0 ML/MIN Glucose 169 H (74-106) mg/dL Calcium 9.0 (8.4-10.2) mg/dL Magnesium (1.6-2.3) mg/dL Total Bilirubin 0.70 (0.2-1.3) mg/dL AST 62 H (14-36) U/L ALT 36 H (0-35) U/L Alkaline Phosphatase 133 H (38-126) U/L Troponin I 0.014 (0.000-0.034) ng/mL Serum Total Protein 6.6 (6.3-8.2) g/dL Albumin 3.5 (3.5-5.0) g/dL Lipase 114 (23-300) U/L Urine Color (Yellow) Urine Appearance (Clear) Urine pH (4.6-8.0) Ur Specific [place] (1.005-1.030) Urine Protein (Negative) Urine Glucose (UA) (Negative) mg/dL Urine Ketones (Negative) Urine Blood (Negative) Urine Nitrite (Negative) Urine Bilirubin (Negative) Urine Urobilinogen (0.2) mg/dL Ur Leukocyte Esterase (Negative) U Hyaline Cast (Auto) (0-2) /LPF Urine Microscopic RBC (0-5) /HPF Urine Microscopic WBC (0-5) /HPF Ur Epithelial Cells (None Seen) /HPF Urine Bacteria (None Seen) /HPF Urine Culture Reflexed (NO) Influenza Type A Ag (NEGATIVE) Influenza Type B Ag (NEGATIVE) RSV (PCR) (NEGATIVE) SARS-CoV-2 (PCR) (NEGATIVE) 05/12/23 05/12/23 05/13/23 Range/Units 23:00 23:21 02:54 WBC (4.0-10.5) x10^3/uL RBC (4.1-5.4) x10^6/uL Hgb (12.0-16.0) g/dL Hct (35-47) % MCV (78-100) fL MCH (26-32) pg MCHC (32-36) g/dL RDW (11.5-14.0) % Plt Count (150-450) x10^3/uL MPV (7.5-11.0) fL Gran % (36.0-66.0) % Immature Gran % (Auto) (0.00-0.4) % Nucleat RBC Rel Count (0.00-0.1) % Eos # (Auto) (0-0.5) x10^3/uL Immature Gran # (Auto) (0.00-0.03) x10^3u/L Absolute Lymphs (auto) (1.0-4.6) x10^3/uL Absolute Monos (auto) (0.0-1.3) x10^3/uL Absolute Nucleated RBC (0.00-0.01) x10^3u/L Lymphocytes % (24.0-44.0) % Monocytes % (0.0-12.0) % Eosinophils % (0.00-5.0) % Basophils % (0.0-0.4) % Absolute Granulocytes (1.4-6.9) x10^3/uL Basophils # (0-0.4) x10^3/uL Sodium (137-145) mmol/L Potassium (3.5-5.1) mmol/L Chloride (98-107) mmol/L Carbon Dioxide (22-30) mmol/L Anion Gap (5-15) MEQ/L BUN (7-17) mg/dL Creatinine (0.52-1.04) mg/dL Estimated GFR ML/MIN Glucose (74-106) mg/dL Calcium (8.4-10.2) mg/dL Magnesium (1.6-2.3) mg/dL Total Bilirubin (0.2-1.3) mg/dL AST (14-36) U/L ALT (0-35) U/L Alkaline Phosphatase (38-126) U/L Troponin I 0.102 H* (0.000-0.034) ng/mL Serum Total Protein (6.3-8.2) g/dL Albumin (3.5-5.0) g/dL Lipase (23-300) U/L Urine Color Yellow (Yellow) Urine Appearance Clear (Clear) Urine pH 7.5 (4.6-8.0) Ur Specific [place] 1.010 (1.005-1.030) Urine Protein 30 (Negative) Urine Glucose (UA) Negative (Negative) mg/dL Urine Ketones Negative (Negative) Urine Blood Trace (Negative) Urine Nitrite Positive A (Negative) Urine Bilirubin Negative (Negative) Urine Urobilinogen 0.2 (0.2) mg/dL Ur Leukocyte Esterase Small A (Negative) U Hyaline Cast (Auto) 3-5 A (0-2) /LPF Urine Microscopic RBC 3-5 (0-5) /HPF Urine Microscopic WBC 21-50 A (0-5) /HPF Ur Epithelial Cells None Seen (None Seen) /HPF Urine Bacteria Many A (None Seen) /HPF Urine Culture Reflexed YES (NO) Influenza Type A Ag NEGATIVE (NEGATIVE) Influenza Type B Ag NEGATIVE (NEGATIVE) RSV (PCR) NEGATIVE (NEGATIVE) SARS-CoV-2 (PCR) NEGATIVE (NEGATIVE) 05/13/23 05/13/23 05/13/23 Range/Units 06:25 06:25 06:25 WBC 11.7 H (4.0-10.5) x10^3/uL RBC 4.21 (4.1-5.4) x10^6/uL Hgb 11.9 L (12.0-16.0) g/dL Hct 35.6 (35-47) % MCV 84.6 (78-100) fL MCH 28.3 (26-32) pg MCHC 33.4 (32-36) g/dL RDW 13.5 (11.5-14.0) % Plt Count 146 L (150-450) x10^3/uL MPV 10.5 (7.5-11.0) fL Gran % (36.0-66.0) % Immature Gran % (Auto) (0.00-0.4) % Nucleat RBC Rel Count (0.00-0.1) % Eos # (Auto) (0-0.5) x10^3/uL Immature Gran # (Auto) (0.00-0.03) x10^3u/L Absolute Lymphs (auto) (1.0-4.6) x10^3/uL Absolute Monos (auto) (0.0-1.3) x10^3/uL Absolute Nucleated RBC (0.00-0.01) x10^3u/L Lymphocytes % (24.0-44.0) % Monocytes % (0.0-12.0) % Eosinophils % (0.00-5.0) % Basophils % (0.0-0.4) % Absolute Granulocytes (1.4-6.9) x10^3/uL Basophils # (0-0.4) x10^3/uL Sodium 135 L (137-145) mmol/L Potassium 3.1 L (3.5-5.1) mmol/L Chloride 104 (98-107) mmol/L Carbon Dioxide 30 (22-30) mmol/L Anion Gap 4.1 L (5-15) MEQ/L BUN 5 L (7-17) mg/dL Creatinine 0.50 L (0.52-1.04) mg/dL Estimated GFR 95.9 ML/MIN Glucose 99 (74-106) mg/dL Calcium 8.2 L (8.4-10.2) mg/dL Magnesium 2.2 (1.6-2.3) mg/dL Total Bilirubin 0.70 (0.2-1.3) mg/dL AST 49 H (14-36) U/L ALT 29 (0-35) U/L Alkaline Phosphatase 105 (38-126) U/L Troponin I 0.151 H* (0.000-0.034) ng/mL Serum Total Protein 6.0 L (6.3-8.2) g/dL Albumin 3.1 L (3.5-5.0) g/dL Lipase (23-300) U/L Urine Color (Yellow) Urine Appearance (Clear) Urine pH (4.6-8.0) Ur Specific [place] (1.005-1.030) Urine Protein (Negative) Urine Glucose (UA) (Negative) mg/dL Urine Ketones (Negative) Urine Blood (Negative) Urine Nitrite (Negative) Urine Bilirubin (Negative) Urine Urobilinogen (0.2) mg/dL Ur Leukocyte Esterase (Negative) U Hyaline Cast (Auto) (0-2) /LPF Urine Microscopic RBC (0-5) /HPF Urine Microscopic WBC (0-5) /HPF Ur Epithelial Cells (None Seen) /HPF Urine Bacteria (None Seen) /HPF Urine Culture Reflexed (NO) Influenza Type A Ag (NEGATIVE) Influenza Type B Ag (NEGATIVE) RSV (PCR) (NEGATIVE) SARS-CoV-2 (PCR) (NEGATIVE) Radiology Exams: Radiology Procedures Category Date Time Status ECHO W/2D AND DOPPLER [US] Routine Exams 05/13/23 09:54 Taken HEAD WITHOUT CONTRAST [CT] Urgent Exams 05/13/23 09:54 Completed MRI BRAIN W & W/O CONTRAST [MRI] Routine Exams 05/14/23 13:00 Ordered Multi-Disciplinary Progress Notes: Multi-Disciplinary Progress Notes 05/13/23 12:25 (created 05/13/23 12:48) Case Management Note by Roseann Bach MR. LOPEZ UPSET AFTER MD ROUNDING, REPORTS THAT THE DOCTOR MENTIONED DISCHARGING TO HOME. LONG DISCUSSION THAT PT WAS NOT BEING DISCHARGED TODAY. EDUCATED THAT MEDICARE WOULD ALLOW UP TO 48 HOURS OF OBSERVATION TREATMENT, AND WE WOULD CONTINUE WITH CURRENT TREATMENT WITH IV HYDRATION, ETC, AND MAYBE PT WOULD BE READY FOR DISCHARGE TOMORROW. PT'S CALMED DOWN AND VERBALIZED UNDERSTANDING OF INFORMATION. ALSO, DISCUSSED THAT THIS WOULD GIVE HIM AN OPPORTUNITY TO TALK WITH CAREGIVERS. MR. LOPEZ AGREED WITH THIS PLAN. ALSO, MR LOPEZ REPORTS THAT HE HAS A PERSON THAT CAN HELP HIM AT HOME UNTIL HE MAKES A DECISION ON HIRED CAREGIVER(S). Initialized on 05/13/23 12:48 - END OF NOTE 05/13/23 09:15 (created 05/13/23 12:43) Case Management Note by Roseann Bach SPOKE WITH PT'S IN LENGTH REGARDING HOME HEALTH CARE SERVICES AND THE TYPE OF CARE THEY CAN PROVIDE, PRIVATE SITTERS/CAREGIVERS, AND HOSPICE CARE SERVICES. REQUESTS THE LIST OF HIRED CAREGIVERS BE SENT TO HIS EMAIL, .au. ALSO DISCUSSED MEMORY CARE UNIT AT [facility]. REPORTS THAT HE IS FAMILIAR WITH JESSIE BECAUSE HIS SISTER IN LAW WAS THERE AT ONE TIME. IS NOT READY FOR PLACEMENT. REPORTS THAT HE WANTS TO TAKE HER HOME WITH HIM AND HAVE CAREGIVERS TO HELP HIM. EMAILED THE LIST OF PRIVATE SITTERS TO HIM. HE REPORTS THAT HE WILL MAKE THE CALLS. Initialized on 05/13/23 12:43 - END OF NOTE <WISAMNELDA - Last Filed: 05/13/23 20:17> Assessment/Plan (1) UTI (urinary tract infection) Current Visit: Yes Status: Acute Assessment & Plan: -UA suspicious for UTI, will treat empirically with ceftriaxone, follow cultures Code(s): N39.0 - URINARY TRACT INFECTION, SITE NOT SPECIFIED (2) Transaminitis Current Visit: Yes Status: Acute Assessment & Plan: -Could be reactive, will trend Code(s): R74.01 - ELEVATION OF LEVELS OF LIVER TRANSAMINASE LEVELS (3) Nausea vomiting and diarrhea Current Visit: Yes Status: Acute Assessment & Plan: -Anti-emectics -hydration Code(s): R11.2 - NAUSEA WITH VOMITING, UNSPECIFIED; R19.7 - DIARRHEA, UNSPECIFIED (4) Alzheimer's dementia Current Visit: Yes Status: Acute Assessment & Plan: -Noted, continue home meds Code(s): G30.9 - ALZHEIMER'S DISEASE, UNSPECIFIED; F02.80 - DEM IN OTH DIS CLASSD ELSWHR,UNSP SEV,W/O BEH/PSYCH/MOOD/ANX (5) Hypokalemia Current Visit: Yes Status: Acute Assessment & Plan: -Most likely secondary to GI loss -Will replenish and recheck according to potassium protocol Code(s): E87.6 - HYPOKALEMIA (6) Hyponatremia Current Visit: Yes Status: Acute Assessment & Plan: -mild, continue IVF Code(s): E87.1 - HYPO-OSMOLALITY AND HYPONATREMIA (7) Syncope Current Visit: Yes Status: Acute Assessment & Plan: -gentle hydration -EKG -UA suspicious for UTI -Patient with advanced AD, poor oral consumption, multiple electrolyte deficiencies -Orthostatic vitals -Consider head CT if able to obtain -ECHO -PT/OT Code(s): R55 - SYNCOPE AND COLLAPSE (8) Elevated troponin Current Visit: Yes Status: Acute Assessment & Plan: -uptrending -cards consult -ECHO -EKG Code(s): R79.89 - OTHER SPECIFIED ABNORMAL FINDINGS OF BLOOD CHEMISTRY (9) Pneumocephalus Current Visit: Yes Status: Acute Assessment & Plan: -CT head showing parasellar pneumocephalus, neurology consulted, appreciate recs, no recent trauma/surgery Code(s): G93.89 - OTHER SPECIFIED DISORDERS OF BRAIN <LAKHWINDER HOLLY - Last Filed: 05/13/23 12:47> CASSIA Encounter - CASSIA Encounter Attestation CASSIA Encounter Attestation: "IhavepersonallyseenandexaminedBODINE,ARAMIS STEPHEN andhavediscussed pertinent aspects of their care with Lakhwinder Holly and agree with the history, physical exam (any modifications based on my personal exam will be noted below), assessment, and plan as outlined in original note. Please see immediately below for my summary of findings and additional assessment and plan along with any meaningful corrections/explanations to the Subjective/Objective portions of the CASSIA note will be noted." My portion of the encounter took place via telemedicine. -Head CT showed parasellar pneumocephalus. Discussed findings with neurosugeon Dr. Vásquez at [facility] who recommended no surgical intervention and repeat imaging in the morning. Will reevaluted with contrast MRI tomorrow and follow up with Dr. Vásquez. <NELDA JOEL - Last Filed: 05/13/23 20:17>
[2023-05-13 06:27] LABS: Hematocrit 35.6 % (35-47); Hemoglobin 11.9 g/dL (12.0-16.0); Mean Cell Volume 84.6 fL (78-100); Mean Corpuscular Hemoglobin 28.3 pg (26-32); Mean Corpuscular Hgb Concent. 33.4 g/dL (32-36); Mean Platelet Volume 10.5 fL (7.5-11.0); Platelet Count 146 x10^3/uL (150-450); Red Blood Count 4.21 x10^6/uL (4.1-5.4); Red Cell Distribution Width 13.5 % (11.5-14.0); White Blood Count 11.7 x10^3/uL (4.0-10.5)
[2023-05-13 06:43] LABS: ALBUMIN 3.1 g/dL (3.5-5.0); BILIRUBIN,TOTAL 0.7 mg/dL (0.2-1.3); Calcium 8.2 mg/dL (8.4-10.2); Creatinine 1 0.5 mg/dL (0.52-1.04); EST GLOMERULAR FILTRATION RATE 95.9 ML/MIN; MAGNESIUM 2.2 mg/dL (1.6-2.3)
[2023-05-13 06:45] LABS: Potassium 3.1 mmol/L (3.5-5.1)
[2023-05-13 06:50] LABS: ANION GAP 4.1 MEQ/L (5-15)
[2023-05-13] MEDS: SYNTHROID 50 MCG PO SCH (09:02)
[2023-05-13] MEDS: Protonix 20MG Tablet PO SCH (09:02)
[2023-05-13] MEDS: Aricept 10 MG PO SCH (09:02)
[2023-05-13] MEDS ORDERED: Protonix 40MG Tablet PO SCH (10:00)
--- NOTE | 2023-05-13 10:51 | XRAY ---
Indication: Syncope. Alzheimer's dementia. Multiple contiguous axial images obtained through the head without contrast. Comparison: December 03, 2022 Again age-appropriate global atrophy, mild periventricular degenerative micro-ischemia bilaterally, and remote lacunar infarct left basal ganglia. New tiny air bubbles adjacent to parasellar internal carotid arteries, right greater than left. No acute intracranial hemorrhage, abnormal extra-axial fluid collection, or mass effect. Fourth ventricle is midline without hydrocephalus. Bony calvarium intact. Visualized paranasal sinuses and mastoid air cells are clear. Impression: 1. New tiny parasellar pneumocephalus, right greater than left. No acute intracranial hemorrhage or clear etiology. 2. Again normal aging brain with remote lacunar infarct left basal ganglia.
[2023-05-13] MEDS: ZOLOFT 50 MG TABLET PO SCH (21:17)
[2023-05-13] MEDS: ROCEPHIN 1 GM / 100 ML NaCl 1 GM/100 ML IVPB IV SCH (21:17)
[2023-05-13] MEDS: TYLENOL 325 MG PO PRN (23:36)
--- NOTE | 2023-05-14 05:48 | PCM.NOTE ---
Date and Time: 05/14/23 0544 Subjective Assessment: is a 77 year old female with HLD, GERN, and Alzheimer's dementia diagnosed 5 years ago who presents with nausea, vomiting, diarrhea and a possible UTI. Lab findings with WBC at 11.5, hyponatremia at 134, potassium at 2.7, transaminitis, and elevated trop at 0.102. UA suspicious for UTI. Patient admitted with UTI, hyponatremia, nausea/vomiting, transaminitis, and elevated troponin. Plan to hydrate, treat UTI with ceftriaxone empirically, and monitor trops and LFTs. CT head showing parasellar pneumocephalus, with neurology recommending no surgical intervention and repeat imaging. Patient to have MRI today and follow up with Dr. Vásquez. 05/14/23: Met with patient bedside. Endorses nausea, no vomiting, poor appetite. This has been going on for several months. Ucult showing gram negative ID. Plan for MRI this afternoon and reconsult with Dr. Vásquez. Potassium is low, will replace. <LAKHWINDER HOLLY - Last Filed: 05/14/23 09:34> Date and Time: 05/14/23 3762 <NELDA JOEL - Last Filed: 05/14/23 23:23> - Review of Systems Constitutional: No Symptoms Eyes: No Symptoms Ears, Nose, & Throat: No Symptoms Respiratory: No Symptoms Cardiac: No Symptoms Abdominal/Gastrointestinal: Nausea Genitourinary Symptoms: No Symptoms Musculoskeletal: No Symptoms Skin: No Symptoms Neurological: No Symptoms Psychological: Memory Loss Endocrine: No Symptoms Hematologic/Lymphatic: No Symptoms Immunological/Allergic: No Symptoms <LAKHWINDER HOLLY - Last Filed: 05/14/23 09:34> Objective Exam General Appearance: no apparent distress Neurologic Exam: alert, disoriented, confusion Skin Exam: normal color Eye Exam: PERRL Ears, Nose, Throat Exam: normal ENT inspection Neck Exam: normal inspection Respiratory Exam: normal breath sounds, lungs clear Cardiovascular Exam: regular rate/rhythm, normal heart sounds Gastrointestinal/Abdomen Exam: soft, normal bowel sounds Extremity Exam: normal inspection Back Exam: normal inspection Pelvic Exam: deferred Rectal Exam: deferred <LAKHWINDER HOLLY - Last Filed: 05/14/23 09:34> OBJECTIVE DATA Vital Signs: Vital Signs - 24 hr Temp Pulse Resp BP BP Pulse Ox 02/09/24 04:00 18 05/14/23 00:00 17 05/13/23 23:46 98.1 F 57 L 17 178/85 94 L 05/13/23 20:00 97.9 F 59 L 17 177/81 97 05/13/23 16:00 98.6 F 67 16 114/55 95 05/13/23 11:13 97.7 F 63 16 96 05/13/23 10:55 61 137/63 05/13/23 06:36 97.9 F 65 16 147/70 99 Pain Assessment - Last Documented Pain Intensity 5 Pain Scale Used 0-10 Pain Scale Intake and Output: Intake & Output 05/11/23 05/12/23 05/13/23 05/14/23 11:59 11:59 11:59 11:59 Intake Total 1040 1318 Output Total 850 700 Balance 190 618 Weight 50.1 kg Lab Results: Lab Results-Last 24 Hours 05/13/23 05/13/23 05/13/23 Range/Units 06:25 06:25 06:25 WBC 11.7 H (4.0-10.5) x10^3/uL RBC 4.21 (4.1-5.4) x10^6/uL Hgb 11.9 L (12.0-16.0) g/dL Hct 35.6 (35-47) % MCV 84.6 (78-100) fL MCH 28.3 (26-32) pg MCHC 33.4 (32-36) g/dL RDW 13.5 (11.5-14.0) % Plt Count 146 L (150-450) x10^3/uL MPV 10.5 (7.5-11.0) fL Sodium 135 L (137-145) mmol/L Potassium 3.1 L (3.5-5.1) mmol/L Chloride 104 (98-107) mmol/L Carbon Dioxide 30 (22-30) mmol/L Anion Gap 4.1 L (5-15) MEQ/L BUN 5 L (7-17) mg/dL Creatinine 0.50 L (0.52-1.04) mg/dL Estimated GFR 95.9 ML/MIN Glucose 99 (74-106) mg/dL Calcium 8.2 L (8.4-10.2) mg/dL Magnesium 2.2 (1.6-2.3) mg/dL Total Bilirubin 0.70 (0.2-1.3) mg/dL AST 49 H (14-36) U/L ALT 29 (0-35) U/L Alkaline Phosphatase 105 (38-126) U/L Troponin I 0.151 H* (0.000-0.034) ng/mL Serum Total Protein 6.0 L (6.3-8.2) g/dL Albumin 3.1 L (3.5-5.0) g/dL 05/14/23 Range/Units 04:20 WBC (4.0-10.5) x10^3/uL RBC (4.1-5.4) x10^6/uL Hgb (12.0-16.0) g/dL Hct (35-47) % MCV (78-100) fL MCH (26-32) pg MCHC (32-36) g/dL RDW (11.5-14.0) % Plt Count (150-450) x10^3/uL MPV (7.5-11.0) fL Sodium (137-145) mmol/L Potassium (3.5-5.1) mmol/L Chloride (98-107) mmol/L Carbon Dioxide (22-30) mmol/L Anion Gap (5-15) MEQ/L BUN (7-17) mg/dL Creatinine (0.52-1.04) mg/dL Estimated GFR ML/MIN Glucose (74-106) mg/dL Calcium (8.4-10.2) mg/dL Magnesium 1.9 (1.6-2.3) mg/dL Total Bilirubin (0.2-1.3) mg/dL AST (14-36) U/L ALT (0-35) U/L Alkaline Phosphatase (38-126) U/L Troponin I (0.000-0.034) ng/mL Serum Total Protein (6.3-8.2) g/dL Albumin (3.5-5.0) g/dL Radiology Exams: Radiology Procedures Category Date Time Status ECHO W/2D AND DOPPLER [US] Routine Exams 05/13/23 09:54 Taken HEAD WITHOUT CONTRAST [CT] Urgent Exams 05/13/23 09:54 Completed MRI BRAIN W & W/O CONTRAST [MRI] Routine Exams 05/14/23 13:00 Ordered Multi-Disciplinary Progress Notes: Multi-Disciplinary Progress Notes 05/13/23 12:25 (created 05/13/23 12:48) Case Management Note by Roseann Bach MR. LOPEZ UPSET AFTER MD ROUNDING, REPORTS THAT THE DOCTOR MENTIONED DISCHARGING TO HOME. LONG DISCUSSION THAT PT WAS NOT BEING DISCHARGED TODAY. EDUCATED THAT MEDICARE WOULD ALLOW UP TO 48 HOURS OF OBSERVATION TREATMENT, AND WE WOULD CONTINUE WITH CURRENT TREATMENT WITH IV HYDRATION, ETC, AND MAYBE PT WOULD BE READY FOR DISCHARGE TOMORROW. PT'S CALMED DOWN AND VERBALIZED UNDERSTANDING OF INFORMATION. ALSO, DISCUSSED THAT THIS WOULD GIVE HIM AN OPPORTUNITY TO TALK WITH CAREGIVERS. MR. LOPEZ AGREED WITH THIS PLAN. ALSO, MR LOPEZ REPORTS THAT HE HAS A PERSON THAT CAN HELP HIM AT HOME UNTIL HE MAKES A DECISION ON HIRED CAREGIVER(S). Initialized on 05/13/23 12:48 - END OF NOTE 05/13/23 09:15 (created 05/13/23 12:43) Case Management Note by Roseann Bach SPOKE WITH PT'S IN LENGTH REGARDING HOME HEALTH CARE SERVICES AND THE TYPE OF CARE THEY CAN PROVIDE, PRIVATE SITTERS/CAREGIVERS, AND HOSPICE CARE SERVICES. REQUESTS THE LIST OF HIRED CAREGIVERS BE SENT TO HIS EMAIL, [email or web address]. ALSO DISCUSSED MEMORY CARE UNIT AT PRISON. REPORTS THAT HE IS FAMILIAR WITH [place] BECAUSE HIS SISTER IN LAW WAS THERE AT ONE TIME. IS NOT READY FOR PLACEMENT. REPORTS THAT HE WANTS TO TAKE HER HOME WITH HIM AND HAVE CAREGIVERS TO HELP HIM. EMAILED THE LIST OF PRIVATE SITTERS TO HIM. HE REPORTS THAT HE WILL MAKE THE CALLS. Initialized on 05/13/23 12:43 - END OF NOTE <LAKHWINDER HOLLY - Last Filed: 05/14/23 09:34> Vital Signs: Vital Signs - 24 hr Temp Pulse Resp BP Pulse Ox 05/14/23 20:00 18 05/14/23 19:44 97.7 F 69 18 165/70 97 05/14/23 16:00 97.9 F 65 16 180/77 96 05/14/23 12:58 180/92 05/14/23 11:58 98.6 F 61 16 195/88 94 L 05/14/23 07:02 98.3 F 53 L 16 186/77 93 L 05/14/23 04:00 18 05/14/23 00:00 17 05/13/23 23:46 98.1 F 57 L 17 178/85 94 L Pain Assessment - Last Documented Pain Intensity 5 Pain Scale Used 0-10 Pain Scale Intake and Output: Intake & Output 05/12/23 05/13/23 05/14/23 05/15/23 11:59 11:59 11:59 11:59 Intake Total 1040 1318 1500 Output Total 850 1200 Balance 656 254 3612 Weight 50.1 kg Lab Results: Lab Results-Last 24 Hours 05/14/23 05/14/23 05/14/23 Range/Units 04:20 04:20 04:20 WBC 8.1 (4.0-10.5) x10^3/uL RBC 4.10 (4.1-5.4) x10^6/uL Hgb 11.8 L (12.0-16.0) g/dL Hct 35.5 (35-47) % MCV 86.6 (78-100) fL MCH 28.8 (26-32) pg MCHC 33.2 (32-36) g/dL RDW 13.7 (11.5-14.0) % Plt Count 137 L (150-450) x10^3/uL MPV 11.6 H (7.5-11.0) fL Gran % 76.6 H (36.0-66.0) % Immature Gran % (Auto) 0.2 (0.00-0.4) % Nucleat RBC Rel Count 0.0 (0.00-0.1) % Eos # (Auto) 0.10 (0-0.5) x10^3/uL Immature Gran # (Auto) 0.02 (0.00-0.03) x10^3u/L Absolute Lymphs (auto) 1.20 (1.0-4.6) x10^3/uL Absolute Monos (auto) 0.55 (0.0-1.3) x10^3/uL Absolute Nucleated RBC 0.00 (0.00-0.01) x10^3u/L Lymphocytes % 14.7 L (24.0-44.0) % Monocytes % 6.8 (0.0-12.0) % Eosinophils % 1.2 (0.00-5.0) % Basophils % 0.5 (0.0-0.4) % Absolute Granulocytes 6.23 (1.4-6.9) x10^3/uL Basophils # 0.04 (0-0.4) x10^3/uL Sodium 135 L (137-145) mmol/L Potassium 2.7 L* (3.5-5.1) mmol/L Chloride 106 (98-107) mmol/L Carbon Dioxide 28 (22-30) mmol/L Anion Gap 3.5 L (5-15) MEQ/L BUN 3 L (7-17) mg/dL Creatinine 0.49 L (0.52-1.04) mg/dL Estimated GFR 96.4 ML/MIN Glucose 110 H (74-106) mg/dL Calcium 7.9 L (8.4-10.2) mg/dL Magnesium 1.9 (1.6-2.3) mg/dL Total Bilirubin 0.80 (0.2-1.3) mg/dL AST 48 H (14-36) U/L ALT 28 (0-35) U/L Alkaline Phosphatase 92 (38-126) U/L Serum Total Protein 5.8 L (6.3-8.2) g/dL Albumin 2.8 L (3.5-5.0) g/dL 05/14/23 05/14/23 Range/Units 06:40 14:08 WBC (4.0-10.5) x10^3/uL RBC (4.1-5.4) x10^6/uL Hgb (12.0-16.0) g/dL Hct (35-47) % MCV (78-100) fL MCH (26-32) pg MCHC (32-36) g/dL RDW (11.5-14.0) % Plt Count (150-450) x10^3/uL MPV (7.5-11.0) fL Gran % (36.0-66.0) % Immature Gran % (Auto) (0.00-0.4) % Nucleat RBC Rel Count (0.00-0.1) % Eos # (Auto) (0-0.5) x10^3/uL Immature Gran # (Auto) (0.00-0.03) x10^3u/L Absolute Lymphs (auto) (1.0-4.6) x10^3/uL Absolute Monos (auto) (0.0-1.3) x10^3/uL Absolute Nucleated RBC (0.00-0.01) x10^3u/L Lymphocytes % (24.0-44.0) % Monocytes % (0.0-12.0) % Eosinophils % (0.00-5.0) % Basophils % (0.0-0.4) % Absolute Granulocytes (1.4-6.9) x10^3/uL Basophils # (0-0.4) x10^3/uL Sodium (137-145) mmol/L Potassium 3.5 D (3.5-5.1) mmol/L Chloride (98-107) mmol/L Carbon Dioxide (22-30) mmol/L Anion Gap (5-15) MEQ/L BUN (7-17) mg/dL Creatinine (0.52-1.04) mg/dL Estimated GFR ML/MIN Glucose (74-106) mg/dL Calcium (8.4-10.2) mg/dL Magnesium 1.9 (1.6-2.3) mg/dL Total Bilirubin (0.2-1.3) mg/dL AST (14-36) U/L ALT (0-35) U/L Alkaline Phosphatase (38-126) U/L Serum Total Protein (6.3-8.2) g/dL Albumin (3.5-5.0) g/dL Radiology Exams: Radiology Procedures Category Date Time Status ABDOMEN AND PELVIS W/0 CONTRAS [CT] Stat Exams 05/14/23 10:43 Completed ECHO W/2D AND DOPPLER [US] Routine Exams 05/13/23 09:54 Taken HEAD WITHOUT CONTRAST [CT] Urgent Exams 05/13/23 09:54 Completed MRI BRAIN W/O CONTRAST [MRI] Routine Exams 05/14/23 13:00 Completed <NELDA JOEL - Last Filed: 05/14/23 23:23> Assessment/Plan (1) UTI (urinary tract infection) Current Visit: Yes Status: Acute Assessment & Plan: -UA suspicious for UTI, will treat empirically with ceftriaxone, follow cultures Code(s): N39.0 - URINARY TRACT INFECTION, SITE NOT SPECIFIED (2) Transaminitis Current Visit: Yes Status: Acute Assessment & Plan: -Could be reactive, will trend Code(s): R74.01 - ELEVATION OF LEVELS OF LIVER TRANSAMINASE LEVELS (3) Nausea vomiting and diarrhea Current Visit: Yes Status: Acute Assessment & Plan: -Anti-emectics -hydration Code(s): R11.2 - NAUSEA WITH VOMITING, UNSPECIFIED; R19.7 - DIARRHEA, UNSPECIFIED (4) Alzheimer's dementia Current Visit: Yes Status: Acute Assessment & Plan: -Noted, continue home meds Code(s): G30.9 - ALZHEIMER'S DISEASE, UNSPECIFIED; F02.80 - DEM IN OTH DIS CLASSD ELSWHR,UNSP SEV,W/O BEH/PSYCH/MOOD/ANX (5) Hypokalemia Current Visit: Yes Status: Acute Assessment & Plan: -Most likely secondary to GI loss -Will replenish and recheck according to potassium protocol 05/14: -Potassium at 2.7 today, will replenish Code(s): E87.6 - HYPOKALEMIA (6) Hyponatremia Current Visit: Yes Status: Acute Assessment & Plan: -mild, continue IVF Code(s): E87.1 - HYPO-OSMOLALITY AND HYPONATREMIA (7) Syncope Current Visit: Yes Status: Acute Assessment & Plan: -gentle hydration -EKG -UA suspicious for UTI - culture with gram negative ID, pending final read -Patient with advanced AD, poor oral consumption, multiple electrolyte deficiencies -Orthostatic vitals -Head CT showing pneumocphalus -ECHO - pending -PT/OT Code(s): R55 - SYNCOPE AND COLLAPSE (8) Elevated troponin Current Visit: Yes Status: Acute Assessment & Plan: -uptrending, no chest pain, most likely secondary to infection -ECHO -EKG Code(s): R79.89 - OTHER SPECIFIED ABNORMAL FINDINGS OF BLOOD CHEMISTRY (9) Pneumocephalus Current Visit: Yes Status: Acute Assessment & Plan: -CT head showing parasellar pneumocephalus, neurology consulted, appreciate recs, no recent trauma/surgery 05/14: -Repeat imaging today and re-consult tele-neuro with results Code(s): G93.89 - OTHER SPECIFIED DISORDERS OF BRAIN Code(s): N39.0 - URINARY TRACT INFECTION, SITE NOT SPECIFIED (2) Transaminitis Current Visit: Yes Status: Acute Code(s): R74.01 - ELEVATION OF LEVELS OF LIVER TRANSAMINASE LEVELS (3) Nausea vomiting and diarrhea Current Visit: Yes Status: Acute Code(s): R11.2 - NAUSEA WITH VOMITING, UNSPECIFIED; R19.7 - DIARRHEA, UNSPECIFIED (4) Alzheimer's dementia Current Visit: Yes Status: Acute Code(s): G30.9 - ALZHEIMER'S DISEASE, UNSPECIFIED; F02.80 - DEM IN OTH DIS CLASSD ELSWHR,UNSP SEV,W/O BEH/PSYCH/MOOD/ANX (5) Hypokalemia Current Visit: Yes Status: Acute Code(s): E87.6 - HYPOKALEMIA (6) Hyponatremia Current Visit: Yes Status: Acute Code(s): E87.1 - HYPO-OSMOLALITY AND HYPONATREMIA (7) Syncope Current Visit: Yes Status: Acute Code(s): R55 - SYNCOPE AND COLLAPSE (8) Elevated troponin Current Visit: Yes Status: Acute Code(s): R79.89 - OTHER SPECIFIED ABNORMAL FINDINGS OF BLOOD CHEMISTRY (9) Pneumocephalus Current Visit: Yes Status: Acute Code(s): G93.89 - OTHER SPECIFIED DISORDERS OF BRAIN <LAKHWINDER HOLLY - Last Filed: 05/14/23 09:34> CASSIA Encounter - CASSIA Encounter Attestation CASSIA Encounter Attestation: "IhavepersonallyseenandexaminedBODINE,ARAMIS STEPHEN andhavediscussed pertinent aspects of their care with Lakhwinder Vaz agree with the history, physical exam (any modifications based on my personal exam will be noted below), assessment, and plan as outlined in original note. Please see immediately below for my summary of findings and additional assessment and plan along with any meaningful corrections/explanations to the Subjective/Objective portions of the CASSIA note will be noted." My portion of the encounter took place via telemedicine. <NELDA JOEL - Last Filed: 05/14/23 23:23>
[2023-05-14 06:16] LABS: Absolute Neutrophil Ct (ANC) 6.23 x10^3/uL (1.4-6.9); BASOPHIL % 0.5 % (0.0-0.4); Basophil (Absolute #) 0.04 x10^3/uL (0-0.4); Eosinophil % 1.2 % (0.00-5.0); Hematocrit 35.5 % (35-47); Hemoglobin 11.8 g/dL (12.0-16.0); IMMATURE GRAN # 0.02 x10^3u/L (0.00-0.03); IMMATURE GRAN % 0.2 % (0.00-0.4); Lymphocytes % 14.7 % (24.0-44.0); Mean Cell Volume 86.6 fL (78-100); Mean Corpuscular Hemoglobin 28.8 pg (26-32); Mean Corpuscular Hgb Concent. 33.2 g/dL (32-36); Mean Platelet Volume 11.6 fL (7.5-11.0); Monocyte (Absolute #) 0.55 x10^3/uL (0.0-1.3); Monocytes % 6.8 % (0.0-12.0); Neutrophil % 76.6 % (36.0-66.0); Platelet Count 137 x10^3/uL (150-450); Red Cell Distribution Width 13.7 % (11.5-14.0); White Blood Count 8.1 x10^3/uL (4.0-10.5)
[2023-05-14 06:30] LABS: ALBUMIN 2.8 g/dL (3.5-5.0); ANION GAP 3.5 MEQ/L (5-15); BILIRUBIN,TOTAL 0.8 mg/dL (0.2-1.3); Calcium 7.9 mg/dL (8.4-10.2); Creatinine 1 0.49 mg/dL (0.52-1.04); EST GLOMERULAR FILTRATION RATE 96.4 ML/MIN; Total Protein 5.8 g/dL (6.3-8.2)
[2023-05-14 06:39] LABS: Potassium 2.7 mmol/L (3.5-5.1)
[2023-05-14] MEDS: POTASSIUM CHLORIDE 20 mEq IN WATER 100ML 100 ML IV SCH (08:18)
[2023-05-14] MEDS: Klor Con PO SCH (09:11)
--- NOTE | 2023-05-14 12:07 | XRAY ---
Indication: Abdomen pain and nausea. Multiple contiguous axial images obtained through the abdomen and pelvis without contrast. Comparison: December 03, 2022 Lung bases again demonstrates pulmonary emphysema with scattered fibrosis/scarring. New moderate bilateral dependent atelectasis and tiny left effusion. Heart not enlarged. Noncontrasted stomach and bowel loops appear nonobstructed. Stable small transverse duodenal diverticulum. Normal appendix. New mild diffuse fluid distended colon/rectum with fluid leveling favoring diarrhea. Again 1 cm gallstone and hysterectomy. No free fluid/air. Remaining liver, gallbladder, pancreas, spleen, adrenal glands, kidneys, ureters, and bladder are unremarkable for noncontrast exam. Again moderate scattered arteriosclerotic calcifications without AAA. Osseous structures intact again with osteopenia, mild/moderate degenerative changes throughout spine, mild degenerative changes both hips, and old distal sacral fracture. Stable 1.5 x 2.6 cm prominent right inguinal node. Impression: 1. New colonic diarrhea. 2. Again prominent right inguinal lymph node presumed reactive. 3. Chronic findings including pulmonary emphysema with fibrosis/scarring, duodenal diverticulum, gallstone, arteriosclerotic disease, and chronic bony findings.
[2023-05-14] MEDS: APRESOLINE 20 MG/ML INJ IV PRN (12:57)
--- NOTE | 2023-05-14 13:53 | XRAY ---
Indication: Pneumocephalus on CT head one day earlier. Sagittal, coronal, and axial MRI brain performed without contrast using T1, T2, FLAIR, diffusion, and ADC sequences. Comparison: None Study is slightly degraded by motion artifact on all sequences/images. Age-appropriate global atrophy with moderate periventricular degenerative micro-ischemia signal bilaterally. Brainstem demonstrates lesser degenerative micro-ischemia signal. No acute intracranial hemorrhage, abnormal extra-axial fluid collection, or mass effect. Diffusion images negative for restricted signal. Fourth ventricle is midline without hydrocephalus. 7/8 cranial nerve complex bilaterally symmetric. Normal flow-void signal within the major intracerebral circulation. Normal appearing craniocervical junction and sella turcica. Paranasal sinuses are clear. Impression: 1. Motion artifact. 2. Atrophy and degenerative micro-ischemia within normal limits for patient's age. 3. Remaining MR brain without contrast exam is grossly negative.
[2023-05-14] MEDS ORDERED: NORVASC 5 MG PO SCH (19:00)
[2023-05-15 05:46] LABS: Absolute Neutrophil Ct (ANC) 4.96 x10^3/uL (1.4-6.9); BASOPHIL % 0.8 % (0.0-0.4); Basophil (Absolute #) 0.06 x10^3/uL (0-0.4); Eosinophil % 2.6 % (0.00-5.0); Eosinophil (Absolute #) 0.21 x10^3/uL (0-0.5); Hematocrit 36.6 % (35-47); IMMATURE GRAN # 0.03 x10^3u/L (0.00-0.03); IMMATURE GRAN % 0.4 % (0.00-0.4); Lymphocyte (Absolute #) 1.84 x10^3/uL (1.0-4.6); Lymphocytes % 23.1 % (24.0-44.0); Mean Corpuscular Hemoglobin 28.8 pg (26-32); Mean Corpuscular Hgb Concent. 32.8 g/dL (32-36); Mean Platelet Volume 11.7 fL (7.5-11.0); Monocyte (Absolute #) 0.85 x10^3/uL (0.0-1.3); Monocytes % 10.7 % (0.0-12.0); Neutrophil % 62.4 % (36.0-66.0); Platelet Count 139 x10^3/uL (150-450); Red Blood Count 4.16 x10^6/uL (4.1-5.4); Red Cell Distribution Width 13.6 % (11.5-14.0)
[2023-05-15 06:03] LABS: ALBUMIN 2.6 g/dL (3.5-5.0); ANION GAP 4.1 MEQ/L (5-15); BILIRUBIN,TOTAL 0.8 mg/dL (0.2-1.3); Calcium 8.1 mg/dL (8.4-10.2); Creatinine 1 0.5 mg/dL (0.52-1.04); EST GLOMERULAR FILTRATION RATE 95.9 ML/MIN; Total Protein 5.2 g/dL (6.3-8.2)
[2023-05-15 06:04] LABS: Potassium 3.1 mmol/L (3.5-5.1)
[2023-05-15] MEDS: Klor Con PO SCH (08:22)
[2023-05-15] MEDS: NORVASC 5 MG PO SCH (09:25)
[2023-05-15] MEDS: OMNICEF 300 MG PO SCH (09:25)
[2023-05-15 10:18] LABS: Slide Review 1 YES
--- NOTE | 2023-05-15 11:23 | PCM.NOTE ---
Date and Time: 05/15/23 1118 Subjective Assessment: is a 77 year old female with HLD, GERN, and Alzheimer's dementia diagnosed 5 years ago who presents with nausea, vomiting, diarrhea and a possible UTI. Lab findings with WBC at 11.5, hyponatremia at 134, potassium at 2.7, transaminitis, and elevated trop at 0.102. UA suspicious for UTI. Patient admitted with UTI, hyponatremia, nausea/vomiting, transaminitis, and elevated troponin. UTI with klebsiella pneumonia, patient on cefdinir orally. CT abdomen/pelvis with no acute findings. CT head showing parasellar pneumocephalus, with neurology recommending no surgical intervention and repeat imaging. MRI with atrophy and degenerative micro-ischemia within normal limits for patient's age otherwise unremarkable. No further intervention needed. Patient's family wishing for discharge to SNF. 05/15/23: Met with patient bedside. No family present during interview. No complaints this morning. States she is tired. Denies nausea. Patient needs prompted to eat meals and constant re-directing otherwise she forgets to eat. Plan is for patient to discharge to SNF/memory unit per request of daughter/. Pending authorization. <LAKHWINDER HOLLY - Last Filed: 05/15/23 11:18> Date and Time: 05/16/23 0024 <NELDA JOEL - Last Filed: 05/16/23 00:24> - Review of Systems Constitutional: Fatigue Eyes: No Symptoms Ears, Nose, & Throat: No Symptoms Respiratory: No Symptoms Cardiac: No Symptoms Abdominal/Gastrointestinal: No Symptoms Genitourinary Symptoms: No Symptoms Musculoskeletal: No Symptoms Skin: No Symptoms Neurological: No Symptoms Psychological: No Symptoms Endocrine: No Symptoms Hematologic/Lymphatic: No Symptoms Immunological/Allergic: No Symptoms <LAKHWINDER HOLLY - Last Filed: 05/15/23 11:18> Objective Exam General Appearance: no apparent distress Neurologic Exam: alert, disoriented, confusion Skin Exam: normal color Eye Exam: PERRL Ears, Nose, Throat Exam: normal ENT inspection Neck Exam: normal inspection Respiratory Exam: normal breath sounds, lungs clear Cardiovascular Exam: regular rate/rhythm, normal heart sounds Gastrointestinal/Abdomen Exam: soft, normal bowel sounds Back Exam: normal inspection Pelvic Exam: deferred Rectal Exam: deferred <LAKHWINDER HOLLY - Last Filed: 05/15/23 11:18> OBJECTIVE DATA Vital Signs: Vital Signs - 24 hr Temp Pulse Resp BP Pulse Ox 05/15/23 07:06 97.7 F 59 L 16 174/81 91 L 05/15/23 04:00 97.9 F 61 18 157/70 93 L 05/15/23 00:00 18 05/14/23 20:00 18 05/14/23 19:44 97.7 F 69 18 165/70 97 05/14/23 16:00 97.9 F 65 16 180/77 96 05/14/23 12:58 180/92 05/14/23 11:58 98.6 F 61 16 195/88 94 L Pain Assessment - Last Documented Pain Intensity 5 Pain Scale Used 0-10 Pain Scale Intake and Output: Intake & Output 05/12/23 05/13/23 05/14/23 05/15/23 11:59 11:59 11:59 11:59 Intake Total 1040 1318 2881 Output Total 850 1200 Balance 472 220 7033 Weight 50.1 kg Lab Results: Lab Results-Last 24 Hours 05/14/23 05/15/23 05/15/23 Range/Units 14:08 05:28 05:28 WBC 8.0 (4.0-10.5) x10^3/uL RBC 4.16 (4.1-5.4) x10^6/uL Hgb 12.0 (12.0-16.0) g/dL Hct 36.6 (35-47) % MCV 88.0 (78-100) fL MCH 28.8 (26-32) pg MCHC 32.8 (32-36) g/dL RDW 13.6 (11.5-14.0) % Plt Count 139 L (150-450) x10^3/uL MPV 11.7 H (7.5-11.0) fL Gran % 62.4 (36.0-66.0) % Immature Gran % (Auto) 0.4 (0.00-0.4) % Nucleat RBC Rel Count 0.0 (0.00-0.1) % Eos # (Auto) 0.21 (0-0.5) x10^3/uL Immature Gran # (Auto) 0.03 (0.00-0.03) x10^3u/L Absolute Lymphs (auto) 1.84 (1.0-4.6) x10^3/uL Absolute Monos (auto) 0.85 (0.0-1.3) x10^3/uL Absolute Nucleated RBC 0.00 (0.00-0.01) x10^3u/L Lymphocytes % 23.1 L (24.0-44.0) % Monocytes % 10.7 (0.0-12.0) % Eosinophils % 2.6 (0.00-5.0) % Basophils % 0.8 (0.0-0.4) % Absolute Granulocytes 4.96 (1.4-6.9) x10^3/uL Basophils # 0.06 (0-0.4) x10^3/uL Sodium 132 L (137-145) mmol/L Potassium 3.5 D 3.1 L (3.5-5.1) mmol/L Chloride 105 (98-107) mmol/L Carbon Dioxide 26 (22-30) mmol/L Anion Gap 4.1 L (5-15) MEQ/L BUN 2 L (7-17) mg/dL Creatinine 0.50 L (0.52-1.04) mg/dL Estimated GFR 95.9 ML/MIN Glucose 96 (74-106) mg/dL Calcium 8.1 L (8.4-10.2) mg/dL Total Bilirubin 0.80 (0.2-1.3) mg/dL AST 45 H (14-36) U/L ALT 25 (0-35) U/L Alkaline Phosphatase 94 (38-126) U/L Serum Total Protein 5.2 L (6.3-8.2) g/dL Albumin 2.6 L (3.5-5.0) g/dL Slides for Path Review YES Radiology Exams: Radiology Procedures Category Date Time Status ABDOMEN AND PELVIS W/0 CONTRAS [CT] Stat Exams 05/14/23 10:43 Completed MRI BRAIN W/O CONTRAST [MRI] Routine Exams 05/14/23 13:00 Completed <LAKHWINDER HOLLY - Last Filed: 05/15/23 11:18> Vital Signs: Vital Signs - 24 hr Temp Pulse Resp BP Pulse Ox 02/11/24 00:00 64 16 05/15/23 23:36 97.6 F 69 16 154/67 96 05/15/23 20:00 16 05/15/23 19:49 97.7 F 65 20 171/74 96 05/15/23 16:00 98.6 F 72 16 139/65 95 05/15/23 14:15 164/86 05/15/23 11:55 97.6 F 62 15 98 05/15/23 07:06 97.7 F 59 L 16 174/81 91 L 05/15/23 04:00 97.9 F 61 18 157/70 93 L Pain Assessment - Last Documented Pain Intensity 5 Pain Scale Used 0-10 Pain Scale Intake and Output: Intake & Output 05/13/23 05/14/23 05/15/23 05/16/23 11:59 11:59 11:59 11:59 Intake Total 1040 1318 2881 560 Output Total 850 1200 Balance 901 049 3011 560 Weight 50.1 kg Lab Results: Lab Results-Last 24 Hours 05/15/23 05/15/23 05/15/23 Range/Units 05:28 05:28 12:34 WBC 8.0 (4.0-10.5) x10^3/uL RBC 4.16 (4.1-5.4) x10^6/uL Hgb 12.0 (12.0-16.0) g/dL Hct 36.6 (35-47) % MCV 88.0 (78-100) fL MCH 28.8 (26-32) pg MCHC 32.8 (32-36) g/dL RDW 13.6 (11.5-14.0) % Plt Count 139 L (150-450) x10^3/uL MPV 11.7 H (7.5-11.0) fL Gran % 62.4 (36.0-66.0) % Immature Gran % (Auto) 0.4 (0.00-0.4) % Nucleat RBC Rel Count 0.0 (0.00-0.1) % Eos # (Auto) 0.21 (0-0.5) x10^3/uL Immature Gran # (Auto) 0.03 (0.00-0.03) x10^3u/L Absolute Lymphs (auto) 1.84 (1.0-4.6) x10^3/uL Absolute Monos (auto) 0.85 (0.0-1.3) x10^3/uL Absolute Nucleated RBC 0.00 (0.00-0.01) x10^3u/L Lymphocytes % 23.1 L (24.0-44.0) % Monocytes % 10.7 (0.0-12.0) % Eosinophils % 2.6 (0.00-5.0) % Basophils % 0.8 (0.0-0.4) % Absolute Granulocytes 4.96 (1.4-6.9) x10^3/uL Basophils # 0.06 (0-0.4) x10^3/uL Sodium 132 L (137-145) mmol/L Potassium 3.1 L 3.8 D (3.5-5.1) mmol/L Chloride 105 (98-107) mmol/L Carbon Dioxide 26 (22-30) mmol/L Anion Gap 4.1 L (5-15) MEQ/L BUN 2 L (7-17) mg/dL Creatinine 0.50 L (0.52-1.04) mg/dL Estimated GFR 95.9 ML/MIN Glucose 96 (74-106) mg/dL Calcium 8.1 L (8.4-10.2) mg/dL Magnesium 1.6 (1.6-2.3) mg/dL Total Bilirubin 0.80 (0.2-1.3) mg/dL AST 45 H (14-36) U/L ALT 25 (0-35) U/L Alkaline Phosphatase 94 (38-126) U/L Serum Total Protein 5.2 L (6.3-8.2) g/dL Albumin 2.6 L (3.5-5.0) g/dL Slides for Path Review YES 05/15/23 Range/Units 16:25 WBC (4.0-10.5) x10^3/uL RBC (4.1-5.4) x10^6/uL Hgb (12.0-16.0) g/dL Hct (35-47) % MCV (78-100) fL MCH (26-32) pg MCHC (32-36) g/dL RDW (11.5-14.0) % Plt Count (150-450) x10^3/uL MPV (7.5-11.0) fL Gran % (36.0-66.0) % Immature Gran % (Auto) (0.00-0.4) % Nucleat RBC Rel Count (0.00-0.1) % Eos # (Auto) (0-0.5) x10^3/uL Immature Gran # (Auto) (0.00-0.03) x10^3u/L Absolute Lymphs (auto) (1.0-4.6) x10^3/uL Absolute Monos (auto) (0.0-1.3) x10^3/uL Absolute Nucleated RBC (0.00-0.01) x10^3u/L Lymphocytes % (24.0-44.0) % Monocytes % (0.0-12.0) % Eosinophils % (0.00-5.0) % Basophils % (0.0-0.4) % Absolute Granulocytes (1.4-6.9) x10^3/uL Basophils # (0-0.4) x10^3/uL Sodium (137-145) mmol/L Potassium 3.6 (3.5-5.1) mmol/L Chloride (98-107) mmol/L Carbon Dioxide (22-30) mmol/L Anion Gap (5-15) MEQ/L BUN (7-17) mg/dL Creatinine (0.52-1.04) mg/dL Estimated GFR ML/MIN Glucose (74-106) mg/dL Calcium (8.4-10.2) mg/dL Magnesium (1.6-2.3) mg/dL Total Bilirubin (0.2-1.3) mg/dL AST (14-36) U/L ALT (0-35) U/L Alkaline Phosphatase (38-126) U/L Serum Total Protein (6.3-8.2) g/dL Albumin (3.5-5.0) g/dL Slides for Path Review Radiology Exams: Radiology Procedures Category Date Time Status ABDOMEN AND PELVIS W/0 CONTRAS [CT] Stat Exams 05/14/23 10:43 Completed MRI BRAIN W/O CONTRAST [MRI] Routine Exams 05/14/23 13:00 Completed <NELDA JOEL - Last Filed: 05/16/23 00:24> Assessment/Plan (1) UTI (urinary tract infection) Current Visit: Yes Status: Acute Assessment & Plan: -UA suspicious for UTI, will treat empirically with ceftriaxone, follow cultures 05/15: -Ucult positive for klebsiella, continue oral abx cefdinir Code(s): N39.0 - URINARY TRACT INFECTION, SITE NOT SPECIFIED (2) Transaminitis Current Visit: Yes Status: Acute Assessment & Plan: -Could be reactive, will trend 05/15: -resolved Code(s): R74.01 - ELEVATION OF LEVELS OF LIVER TRANSAMINASE LEVELS (3) Nausea vomiting and diarrhea Current Visit: Yes Status: Acute Assessment & Plan: -Anti-emectics -hydration 05/15: -Continues with nausea, no vomiting, CT abd/pelvis with no acute findings Code(s): R11.2 - NAUSEA WITH VOMITING, UNSPECIFIED; R19.7 - DIARRHEA, UNSPECIFIED (4) Alzheimer's dementia Current Visit: Yes Status: Acute Assessment & Plan: -Noted, continue home meds Code(s): G30.9 - ALZHEIMER'S DISEASE, UNSPECIFIED; F02.80 - DEM IN OTH DIS CLASSD ELSWHR,UNSP SEV,W/O BEH/PSYCH/MOOD/ANX (5) Hypokalemia Current Visit: Yes Status: Acute Assessment & Plan: -Most likely secondary to GI loss -Will replenish and recheck according to potassium protocol 05/14: -Potassium at 2.7 today, will replenish 05/15: -potassium at 3.1, will replenish Code(s): E87.6 - HYPOKALEMIA (6) Hyponatremia Current Visit: Yes Status: Acute Assessment & Plan: -mild, continue IVF Code(s): E87.1 - HYPO-OSMOLALITY AND HYPONATREMIA (7) Syncope Current Visit: Yes Status: Acute Assessment & Plan: -Most likely secondary to dehydration -gentle hydration -EKG -UA suspicious for UTI - culture with gram negative ID, pending final read -Patient with advanced AD, poor oral consumption, multiple electrolyte deficiencies -Orthostatic vitals -Head CT showing pneumocphalus -ECHO - pending -PT/OT Code(s): R55 - SYNCOPE AND COLLAPSE (8) Elevated troponin Current Visit: Yes Status: Acute Assessment & Plan: -uptrending, no chest pain, most likely secondary to infection -ECHO -EKG Code(s): R79.89 - OTHER SPECIFIED ABNORMAL FINDINGS OF BLOOD CHEMISTRY (9) Pneumocephalus Current Visit: Yes Status: Acute Assessment & Plan: -CT head showing parasellar pneumocephalus, neurology consulted, appreciate recs, no recent trauma/surgery 05/14: -Repeat imaging today and re-consult tele-neuro with results Code(s): G93.89 - OTHER SPECIFIED DISORDERS OF BRAIN Code(s): N39.0 - URINARY TRACT INFECTION, SITE NOT SPECIFIED Code(s): N39.0 - URINARY TRACT INFECTION, SITE NOT SPECIFIED (2) Transaminitis Current Visit: Yes Status: Acute Code(s): R74.01 - ELEVATION OF LEVELS OF LIVER TRANSAMINASE LEVELS (3) Nausea vomiting and diarrhea Current Visit: Yes Status: Acute Code(s): R11.2 - NAUSEA WITH VOMITING, UNSPECIFIED; R19.7 - DIARRHEA, UNSPECIFIED (4) Alzheimer's dementia Current Visit: Yes Status: Acute Code(s): G30.9 - ALZHEIMER'S DISEASE, UNSPECIFIED; F02.80 - DEM IN OTH DIS CLASSD ELSWHR,UNSP SEV,W/O BEH/PSYCH/MOOD/ANX (5) Hypokalemia Current Visit: Yes Status: Acute Code(s): E87.6 - HYPOKALEMIA (6) Hyponatremia Current Visit: Yes Status: Acute Code(s): E87.1 - HYPO-OSMOLALITY AND HYPONATREMIA (7) Syncope Current Visit: Yes Status: Acute Code(s): R55 - SYNCOPE AND COLLAPSE (8) Elevated troponin Current Visit: Yes Status: Acute Code(s): R79.89 - OTHER SPECIFIED ABNORMAL FINDINGS OF BLOOD CHEMISTRY (9) Pneumocephalus Current Visit: Yes Status: Acute Code(s): G93.89 - OTHER SPECIFIED DISORDERS OF BRAIN <LAKHWINDER HOLLY - Last Filed: 05/15/23 11:18> CASSIA Encounter - CASSIA Encounter Attestation CASSIA Encounter Attestation: "IhavepersonallyseenandexaminedBODINE,ARAMIS STEPHEN andhavediscussed pertinent aspects of their care with Lakhwinder Vaz agree with the history, physical exam (any modifications based on my personal exam will be noted below), assessment, and plan as outlined in original note. Please see immediately below for my summary of findings and additional assessment and plan along with any meaningful corrections/explanations to the Subjective/Objective portions of the CASSIA note will be noted." My portion of the encounter took place via telemedicine. <NELDA JOEL - Last Filed: 05/16/23 00:24>
[2023-05-15 12:57] LABS: MAGNESIUM 1.6 mg/dL (1.6-2.3)
[2023-05-15 13:05] LABS: Potassium 3.8 mmol/L (3.5-5.1)
[2023-05-16 05:41] LABS: Absolute Neutrophil Ct (ANC) 6.01 x10^3/uL (1.4-6.9); Eosinophil % 3.4 % (0.00-5.0); Eosinophil (Absolute #) 0.35 x10^3/uL (0-0.5); Hematocrit 42.7 % (35-47); Hemoglobin 13.7 g/dL (12.0-16.0); IMMATURE GRAN # 0.02 x10^3u/L (0.00-0.03); IMMATURE GRAN % 0.2 % (0.00-0.4); Lymphocytes % 26.3 % (24.0-44.0); Mean Cell Volume 89.3 fL (78-100); Mean Corpuscular Hemoglobin 28.7 pg (26-32); Mean Corpuscular Hgb Concent. 32.1 g/dL (32-36); Mean Platelet Volume 11.2 fL (7.5-11.0); Monocyte (Absolute #) 1.08 x10^3/uL (0.0-1.3); Monocytes % 10.5 % (0.0-12.0); Neutrophil % 58.6 % (36.0-66.0); Platelet Count 160 x10^3/uL (150-450); Red Blood Count 4.78 x10^6/uL (4.1-5.4); Red Cell Distribution Width 13.5 % (11.5-14.0); White Blood Count 10.3 x10^3/uL (4.0-10.5)
--- NOTE | 2023-05-16 05:41 | PCM.NOTE ---
Date and Time: 05/16/23 0541 Subjective Assessment: is a 77 year old female with HLD, GERN, and Alzheimer's dementia diagnosed 5 years ago who presents with nausea, vomiting, diarrhea and a possible UTI. Lab findings with WBC at 11.5, hyponatremia at 134, potassium at 2.7, transaminitis, and elevated trop at 0.102. UA suspicious for UTI. Patient admitted with UTI, hyponatremia, nausea/vomiting, transaminitis, and elevated troponin. UTI with klebsiella pneumonia, patient on cefdinir orally. CT abdomen/pelvis with no acute findings. CT head showing parasellar pneumocephalus, with neurology recommending no surgical intervention and repeat imaging. MRI with atrophy and degenerative micro-ischemia within normal limits for patient's age otherwise unremarkable. No further intervention needed. Patient's family wishing for discharge to SNF. 05/16/23: Met with patient bedside. No overnight events noted. Endorses no complaints this morning. Magnesium is low this morning, will replenish. Plan is for discharge to SNF tomorrow. Denies fever,cough, sob, cp, abdominal pain, OH, dizziness, N/V/D. <LAKHWINDER HOLLY - Last Filed: 05/16/23 09:45> Date and Time: 05/16/23 1658 <NELDA JOEL - Last Filed: 05/16/23 17:01> - Review of Systems Constitutional: No Symptoms Eyes: No Symptoms Ears, Nose, & Throat: No Symptoms Respiratory: No Symptoms Cardiac: No Symptoms Abdominal/Gastrointestinal: No Symptoms Genitourinary Symptoms: No Symptoms Musculoskeletal: No Symptoms Skin: No Symptoms Neurological: No Symptoms Psychological: No Symptoms Endocrine: No Symptoms Hematologic/Lymphatic: No Symptoms Immunological/Allergic: No Symptoms <LAKHWINDER HOLLY - Last Filed: 05/16/23 09:45> Objective Exam General Appearance: no apparent distress Neurologic Exam: alert, disoriented, confusion Skin Exam: normal color Eye Exam: PERRL Ears, Nose, Throat Exam: normal ENT inspection Neck Exam: normal inspection Respiratory Exam: normal breath sounds, lungs clear Cardiovascular Exam: regular rate/rhythm, normal heart sounds Gastrointestinal/Abdomen Exam: soft, normal bowel sounds Extremity Exam: normal inspection Back Exam: normal inspection Pelvic Exam: deferred Rectal Exam: deferred <LAKHWINDER HOLLY - Last Filed: 05/16/23 09:45> OBJECTIVE DATA Vital Signs: Vital Signs - 24 hr Temp Pulse Resp BP Pulse Ox 05/16/23 04:00 97.7 F 68 18 141/68 95 05/16/23 00:00 64 16 05/15/23 23:36 97.6 F 69 16 154/67 96 05/15/23 20:00 16 05/15/23 19:49 97.7 F 65 20 171/74 96 05/15/23 16:00 98.6 F 72 16 139/65 95 05/15/23 14:15 164/86 05/15/23 11:55 97.6 F 62 15 98 05/15/23 07:06 97.7 F 59 L 16 174/81 91 L Pain Assessment - Last Documented Pain Intensity 3 Pain Scale Used 0-10 Pain Scale Intake and Output: Intake & Output 05/13/23 05/14/23 05/15/23 05/16/23 11:59 11:59 11:59 11:59 Intake Total 1040 1318 2881 560 Output Total 850 1200 Balance 852 073 6488 560 Weight 50.1 kg Lab Results: Lab Results-Last 24 Hours 05/15/23 05/15/23 05/15/23 Range/Units 05:28 05:28 12:34 WBC 8.0 (4.0-10.5) x10^3/uL RBC 4.16 (4.1-5.4) x10^6/uL Hgb 12.0 (12.0-16.0) g/dL Hct 36.6 (35-47) % MCV 88.0 (78-100) fL MCH 28.8 (26-32) pg MCHC 32.8 (32-36) g/dL RDW 13.6 (11.5-14.0) % Plt Count 139 L (150-450) x10^3/uL MPV 11.7 H (7.5-11.0) fL Gran % 62.4 (36.0-66.0) % Immature Gran % (Auto) 0.4 (0.00-0.4) % Nucleat RBC Rel Count 0.0 (0.00-0.1) % Eos # (Auto) 0.21 (0-0.5) x10^3/uL Immature Gran # (Auto) 0.03 (0.00-0.03) x10^3u/L Absolute Lymphs (auto) 1.84 (1.0-4.6) x10^3/uL Absolute Monos (auto) 0.85 (0.0-1.3) x10^3/uL Absolute Nucleated RBC 0.00 (0.00-0.01) x10^3u/L Lymphocytes % 23.1 L (24.0-44.0) % Monocytes % 10.7 (0.0-12.0) % Eosinophils % 2.6 (0.00-5.0) % Basophils % 0.8 (0.0-0.4) % Absolute Granulocytes 4.96 (1.4-6.9) x10^3/uL Basophils # 0.06 (0-0.4) x10^3/uL Sodium 132 L (137-145) mmol/L Potassium 3.1 L 3.8 D (3.5-5.1) mmol/L Chloride 105 (98-107) mmol/L Carbon Dioxide 26 (22-30) mmol/L Anion Gap 4.1 L (5-15) MEQ/L BUN 2 L (7-17) mg/dL Creatinine 0.50 L (0.52-1.04) mg/dL Estimated GFR 95.9 ML/MIN Glucose 96 (74-106) mg/dL Calcium 8.1 L (8.4-10.2) mg/dL Magnesium 1.6 (1.6-2.3) mg/dL Total Bilirubin 0.80 (0.2-1.3) mg/dL AST 45 H (14-36) U/L ALT 25 (0-35) U/L Alkaline Phosphatase 94 (38-126) U/L Serum Total Protein 5.2 L (6.3-8.2) g/dL Albumin 2.6 L (3.5-5.0) g/dL Slides for Path Review YES 05/15/23 Range/Units 16:25 WBC (4.0-10.5) x10^3/uL RBC (4.1-5.4) x10^6/uL Hgb (12.0-16.0) g/dL Hct (35-47) % MCV (78-100) fL MCH (26-32) pg MCHC (32-36) g/dL RDW (11.5-14.0) % Plt Count (150-450) x10^3/uL MPV (7.5-11.0) fL Gran % (36.0-66.0) % Immature Gran % (Auto) (0.00-0.4) % Nucleat RBC Rel Count (0.00-0.1) % Eos # (Auto) (0-0.5) x10^3/uL Immature Gran # (Auto) (0.00-0.03) x10^3u/L Absolute Lymphs (auto) (1.0-4.6) x10^3/uL Absolute Monos (auto) (0.0-1.3) x10^3/uL Absolute Nucleated RBC (0.00-0.01) x10^3u/L Lymphocytes % (24.0-44.0) % Monocytes % (0.0-12.0) % Eosinophils % (0.00-5.0) % Basophils % (0.0-0.4) % Absolute Granulocytes (1.4-6.9) x10^3/uL Basophils # (0-0.4) x10^3/uL Sodium (137-145) mmol/L Potassium 3.6 (3.5-5.1) mmol/L Chloride (98-107) mmol/L Carbon Dioxide (22-30) mmol/L Anion Gap (5-15) MEQ/L BUN (7-17) mg/dL Creatinine (0.52-1.04) mg/dL Estimated GFR ML/MIN Glucose (74-106) mg/dL Calcium (8.4-10.2) mg/dL Magnesium (1.6-2.3) mg/dL Total Bilirubin (0.2-1.3) mg/dL AST (14-36) U/L ALT (0-35) U/L Alkaline Phosphatase (38-126) U/L Serum Total Protein (6.3-8.2) g/dL Albumin (3.5-5.0) g/dL Slides for Path Review Radiology Exams: Radiology Procedures Category Date Time Status ABDOMEN AND PELVIS W/0 CONTRAS [CT] Stat Exams 05/14/23 10:43 Completed MRI BRAIN W/O CONTRAST [MRI] Routine Exams 05/14/23 13:00 Completed <LAKHWINDER HOLLY - Last Filed: 05/16/23 09:45> Vital Signs: Vital Signs - 24 hr Temp Pulse Resp BP Pulse Ox 05/16/23 16:00 97.3 F 76 17 126/79 96 05/16/23 12:00 97.2 F 88 16 149/81 95 05/16/23 08:00 97.5 F 65 18 178/86 95 05/16/23 04:00 97.7 F 68 18 141/68 95 05/16/23 00:00 64 16 05/15/23 23:36 97.6 F 69 16 154/67 96 05/15/23 20:00 16 05/15/23 19:49 97.7 F 65 20 171/74 96 Pain Assessment - Last Documented Pain Intensity 3 Pain Scale Used 0-10 Pain Scale Intake and Output: Intake & Output 05/14/23 05/15/23 05/16/23 05/17/23 11:59 11:59 11:59 11:59 Intake Total 1318 2881 680 120 Output Total 1200 Balance 118 2881 680 120 Lab Results: Lab Results-Last 24 Hours 05/16/23 05/16/23 Range/Units 05:30 05:30 WBC 10.3 (4.0-10.5) x10^3/uL RBC 4.78 (4.1-5.4) x10^6/uL Hgb 13.7 (12.0-16.0) g/dL Hct 42.7 (35-47) % MCV 89.3 (78-100) fL MCH 28.7 (26-32) pg MCHC 32.1 (32-36) g/dL RDW 13.5 (11.5-14.0) % Plt Count 160 (150-450) x10^3/uL MPV 11.2 H (7.5-11.0) fL Gran % 58.6 (36.0-66.0) % Immature Gran % (Auto) 0.2 (0.00-0.4) % Nucleat RBC Rel Count 0.0 (0.00-0.1) % Eos # (Auto) 0.35 (0-0.5) x10^3/uL Immature Gran # (Auto) 0.02 (0.00-0.03) x10^3u/L Absolute Lymphs (auto) 2.70 (1.0-4.6) x10^3/uL Absolute Monos (auto) 1.08 (0.0-1.3) x10^3/uL Absolute Nucleated RBC 0.00 (0.00-0.01) x10^3u/L Lymphocytes % 26.3 (24.0-44.0) % Monocytes % 10.5 (0.0-12.0) % Eosinophils % 3.4 (0.00-5.0) % Basophils % 1.0 (0.0-0.4) % Absolute Granulocytes 6.01 (1.4-6.9) x10^3/uL Basophils # 0.10 (0-0.4) x10^3/uL Sodium 130 L (137-145) mmol/L Potassium 3.7 (3.5-5.1) mmol/L Chloride 102 (98-107) mmol/L Carbon Dioxide 24 (22-30) mmol/L Anion Gap 7.8 (5-15) MEQ/L BUN 3 L (7-17) mg/dL Creatinine 0.49 L (0.52-1.04) mg/dL Estimated GFR 96.4 ML/MIN Glucose 98 (74-106) mg/dL Calcium 8.9 (8.4-10.2) mg/dL Magnesium 1.5 L (1.6-2.3) mg/dL Total Bilirubin 1.30 (0.2-1.3) mg/dL AST 45 H (14-36) U/L ALT 28 (0-35) U/L Alkaline Phosphatase 103 (38-126) U/L Serum Total Protein 5.8 L (6.3-8.2) g/dL Albumin 2.9 L (3.5-5.0) g/dL Slides for Path Review YES <NELDA JOEL - Last Filed: 05/16/23 17:01> Assessment/Plan (1) UTI (urinary tract infection) Current Visit: Yes Status: Acute Assessment & Plan: -UA suspicious for UTI, will treat empirically with ceftriaxone, follow cultures 05/15: -Ucult positive for klebsiella, continue oral abx cefdinir Code(s): N39.0 - URINARY TRACT INFECTION, SITE NOT SPECIFIED (2) Transaminitis Current Visit: Yes Status: Acute Assessment & Plan: -Could be reactive, will trend 05/15: -resolved Code(s): R74.01 - ELEVATION OF LEVELS OF LIVER TRANSAMINASE LEVELS (3) Nausea vomiting and diarrhea Current Visit: Yes Status: Acute Assessment & Plan: -Anti-emectics -hydration 05/15: -Continues with nausea, no vomiting, CT abd/pelvis with no acute findings 05/16: -nausea resolved Code(s): R11.2 - NAUSEA WITH VOMITING, UNSPECIFIED; R19.7 - DIARRHEA, UNSPECIFIED (4) Alzheimer's dementia Current Visit: Yes Status: Acute Assessment & Plan: -Noted, continue home meds Code(s): G30.9 - ALZHEIMER'S DISEASE, UNSPECIFIED; F02.80 - DEM IN OTH DIS CLASSD ELSWHR,UNSP SEV,W/O BEH/PSYCH/MOOD/ANX (5) Hypokalemia Current Visit: Yes Status: Acute Assessment & Plan: -Most likely secondary to GI loss -Will replenish and recheck according to potassium protocol 05/14: -Potassium at 2.7 today, will replenish 05/15: -potassium at 3.1, will replenish 05/16: -resolved Code(s): E87.6 - HYPOKALEMIA (6) Hyponatremia Current Visit: Yes Status: Acute Assessment & Plan: -mild, continue IVF Code(s): E87.1 - HYPO-OSMOLALITY AND HYPONATREMIA (7) Syncope Current Visit: Yes Status: Acute Assessment & Plan: -Most likely secondary to dehydration -gentle hydration -EKG -UA suspicious for UTI - culture with Klebsiella, on cefdinir -Patient with advanced AD, poor oral consumption, multiple electrolyte deficiencies -Orthostatic vitals negative -Head CT showing pneumocphalus, MRI negative, no further workup needed per Neurololgy -ECHO - pending -PT/OT Code(s): R55 - SYNCOPE AND COLLAPSE (8) Elevated troponin Current Visit: Yes Status: Acute Assessment & Plan: -uptrending, no chest pain, most likely secondary to infection -ECHO -pending -refuses tele -EKG Code(s): R79.89 - OTHER SPECIFIED ABNORMAL FINDINGS OF BLOOD CHEMISTRY (9) Pneumocephalus Current Visit: Yes Status: Acute Assessment & Plan: -CT head showing parasellar pneumocephalus, neurology consulted, appreciate recs, no recent trauma/surgery 05/14: -Repeat imaging today and re-consult tele-neuro with results 05/16/23: -MRI negative, neurology states no further intervention needed (10) Hypomagnesemia -Mag at 1.5 this morning, most likely due to loose stools yesterday, will replenish, Code(s): G93.89 - OTHER SPECIFIED DISORDERS OF BRAIN Code(s): N39.0 - URINARY TRACT INFECTION, SITE NOT SPECIFIED Code(s): N39.0 - URINARY TRACT INFECTION, SITE NOT SPECIFIED Code(s): N39.0 - URINARY TRACT INFECTION, SITE NOT SPECIFIED (2) Transaminitis Current Visit: Yes Status: Acute Code(s): R74.01 - ELEVATION OF LEVELS OF LIVER TRANSAMINASE LEVELS (3) Nausea vomiting and diarrhea Current Visit: Yes Status: Acute Code(s): R11.2 - NAUSEA WITH VOMITING, UNSPECIFIED; R19.7 - DIARRHEA, UNSPECIFIED (4) Alzheimer's dementia Current Visit: Yes Status: Acute Code(s): G30.9 - ALZHEIMER'S DISEASE, UNSPECIFIED; F02.80 - DEM IN OTH DIS CLASSD ELSWHR,UNSP SEV,W/O BEH/PSYCH/MOOD/ANX (5) Hypokalemia Current Visit: Yes Status: Acute Code(s): E87.6 - HYPOKALEMIA (6) Hyponatremia Current Visit: Yes Status: Acute Code(s): E87.1 - HYPO-OSMOLALITY AND HYPONATREMIA (7) Syncope Current Visit: Yes Status: Acute Code(s): R55 - SYNCOPE AND COLLAPSE (8) Elevated troponin Current Visit: Yes Status: Acute Code(s): R79.89 - OTHER SPECIFIED ABNORMAL FINDINGS OF BLOOD CHEMISTRY (9) Pneumocephalus Current Visit: Yes Status: Acute Code(s): G93.89 - OTHER SPECIFIED DISORDERS OF BRAIN (10) Hypomagnesemia Current Visit: Yes Status: Acute Code(s): E83.42 - HYPOMAGNESEMIA <LAKHWINDER HOLLY - Last Filed: 05/16/23 09:45> CASSIA Encounter - CASSIA Encounter Attestation CASSIA Encounter Attestation: "IhavepersonallyseenandexamineHumphreyJANETTE,ARAMIS HAILEE andhavediscussed pertinent aspects of their care with Lakhwinder Holly and agree with the history, physical exam (any modifications based on my personal exam will be noted below), assessment, and plan as outlined in original note. Please see immediately below for my summary of findings and additional assessment and plan along with any meaningful corrections/explanations to the Subjective/Objective portions of the CASSIA note will be noted." My portion of the encounter took place via telemedicine. -Patient initially admitted with N/V/D likely secondary to acute gastroenteritis. Underwent work up for pneumocephalus seen on CT but this did not show on the MRI and was not of concern in the absence of CSF leak, trauma, recent surgery, per neurosurgery (I spoke with Dr. Vásquez at [place]). Patient is now stable and awaiting placement in a nursing facility. <NELDA JOEL - Last Filed: 05/16/23 17:01>
[2023-05-16 06:02] LABS: ALBUMIN 2.9 g/dL (3.5-5.0); ANION GAP 7.8 MEQ/L (5-15); BILIRUBIN,TOTAL 1.3 mg/dL (0.2-1.3); Calcium 8.9 mg/dL (8.4-10.2); Creatinine 1 0.49 mg/dL (0.52-1.04); EST GLOMERULAR FILTRATION RATE 96.4 ML/MIN; MAGNESIUM 1.5 mg/dL (1.6-2.3); Potassium 3.7 mmol/L (3.5-5.1); Total Protein 5.8 g/dL (6.3-8.2)
[2023-05-16 07:17] LABS: Slide Review 1 YES
[2023-05-16] MEDS: MAGNESIUM SULF 2 G/50 ML BAG 2 GM/50 ML PIGGYBACK IV ONE (10:58)
[2023-05-17 04:53] LABS: Absolute Neutrophil Ct (ANC) 5.09 x10^3/uL (1.4-6.9); BASOPHIL % 0.6 % (0.0-0.4); Basophil (Absolute #) 0.05 x10^3/uL (0-0.4); Eosinophil % 4.5 % (0.00-5.0); Eosinophil (Absolute #) 0.39 x10^3/uL (0-0.5); Hematocrit 39.7 % (35-47); Hemoglobin 13.4 g/dL (12.0-16.0); IMMATURE GRAN # 0.03 x10^3u/L (0.00-0.03); IMMATURE GRAN % 0.3 % (0.00-0.4); Lymphocyte (Absolute #) 2.16 x10^3/uL (1.0-4.6); Lymphocytes % 24.8 % (24.0-44.0); Mean Cell Volume 84.8 fL (78-100); Mean Corpuscular Hemoglobin 28.6 pg (26-32); Mean Corpuscular Hgb Concent. 33.8 g/dL (32-36); Mean Platelet Volume 10.8 fL (7.5-11.0); Monocyte (Absolute #) 0.98 x10^3/uL (0.0-1.3); Monocytes % 11.3 % (0.0-12.0); Neutrophil % 58.5 % (36.0-66.0); Platelet Count 214 x10^3/uL (150-450); Red Blood Count 4.68 x10^6/uL (4.1-5.4); Red Cell Distribution Width 13.6 % (11.5-14.0); White Blood Count 8.7 x10^3/uL (4.0-10.5)
[2023-05-17 05:34] LABS: ALBUMIN 3.1 g/dL (3.5-5.0); ANION GAP 5.1 MEQ/L (5-15); BILIRUBIN,TOTAL 1.2 mg/dL (0.2-1.3); Calcium 8.5 mg/dL (8.4-10.2); Creatinine 1 0.54 mg/dL (0.52-1.04); EST GLOMERULAR FILTRATION RATE 94.2 ML/MIN; Potassium 3.1 mmol/L (3.5-5.1); Total Protein 6.2 g/dL (6.3-8.2)
[2023-05-17 07:15] VITALS: RESP 17
[2023-05-17] MEDS: SODIUM CHLORIDE PO ONE (08:39)
[2023-05-17] MEDS: Klor Con PO SCH (08:39)
--- NOTE | 2023-05-17 11:05 | PCM.DS ---
Discharge Summary Date of Admission: 05/13/23 00:34 Date of Discharge: 05/17/23 Admitting Physician: BLAKE MEJÍA MD Consults: Consults on Case 05/13/23 11:41 Consult Neurology ROUTINE Primary Care Provider: ARNULFO,REBECCA Allergies Allergies No Known Drug Allergies Allergy (Verified 10/05/17 13:51) Hospital Summary - Hospital Course Hospital Course: is a 77 year old female with HLD, GERN, and Alzheimer's dementia diagnosed 5 years ago who presents with nausea, vomiting, diarrhea and a UTI. Lab findings with WBC at 11.5, hyponatremia at 134, potassium at 2.7, transaminitis, and elevated trop at 0.102. Patient admitted with UTI, hyponatremia, nausea/vomiting, transaminitis, and elevated troponin. UTI with klebsiella pneumonia, patient on cefdinir orally. CT abdomen/pelvis with no acute findings. CT head showing parasellar pneumocephalus, with neurology recommending no surgical intervention and repeat imaging. MRI with atrophy and degenerative micro-ischemia within normal limits for patient's age otherwise unremarkable. No further intervention needed. Patient's family wishing for discharge to SNF. 05/17/23: Met with patient bedside. No overnight events noted. Endorses tiredness. K+ 3.1 today and replaced. Plan is for discharge to SNF today. Denies fever,cough, sob, cp, abdominal pain, OH, dizziness, N/V/D. - Vitals & Intake/Output Vital Signs: Vital Signs Temperature 97.7 F 05/17/23 07:14 Pulse Rate 67 05/17/23 07:14 Respiratory Rate 17 05/17/23 08:00 Blood Pressure 129/62 05/17/23 08:40 O2 Sat by Pulse Oximetry 94 L 05/17/23 07:14 Intake & Output: Intake & Output 05/14/23 05/15/23 05/16/23 05/17/23 11:59 11:59 11:59 11:59 Intake Total 1318 2881 680 820 Output Total 1200 Balance 118 2881 680 820 - Lab Result Diagrams: 05/17/23 04:45 05/17/23 04:45 Lab Results-Last 24 Hrs: Lab Results-Last 24 Hours 02/12/24 02/12/24 02/12/24 Range/Units 04:45 04:45 04:45 WBC 8.7 (4.0-10.5) x10^3/uL RBC 4.68 (4.1-5.4) x10^6/uL Hgb 13.4 (12.0-16.0) g/dL Hct 39.7 (35-47) % MCV 84.8 (78-100) fL MCH 28.6 (26-32) pg MCHC 33.8 (32-36) g/dL RDW 13.6 (11.5-14.0) % Plt Count 214 (150-450) x10^3/uL MPV 10.8 (7.5-11.0) fL Gran % 58.5 (36.0-66.0) % Immature Gran % (Auto) 0.3 (0.00-0.4) % Nucleat RBC Rel Count 0.0 (0.00-0.1) % Eos # (Auto) 0.39 (0-0.5) x10^3/uL Immature Gran # (Auto) 0.03 (0.00-0.03) x10^3u/L Absolute Lymphs (auto) 2.16 (1.0-4.6) x10^3/uL Absolute Monos (auto) 0.98 (0.0-1.3) x10^3/uL Absolute Nucleated RBC 0.00 (0.00-0.01) x10^3u/L Lymphocytes % 24.8 (24.0-44.0) % Monocytes % 11.3 (0.0-12.0) % Eosinophils % 4.5 (0.00-5.0) % Basophils % 0.6 (0.0-0.4) % Absolute Granulocytes 5.09 (1.4-6.9) x10^3/uL Basophils # 0.05 (0-0.4) x10^3/uL Sodium 128 L (137-145) mmol/L Potassium 3.1 L (3.5-5.1) mmol/L Chloride 98 (98-107) mmol/L Carbon Dioxide 28 (22-30) mmol/L Anion Gap 5.1 (5-15) MEQ/L BUN 4 L (7-17) mg/dL Creatinine 0.54 (0.52-1.04) mg/dL Estimated GFR 94.2 ML/MIN Glucose 98 (74-106) mg/dL Calcium 8.5 (8.4-10.2) mg/dL Magnesium 1.8 (1.6-2.3) mg/dL Total Bilirubin 1.20 (0.2-1.3) mg/dL AST 39 H (14-36) U/L ALT 26 (0-35) U/L Alkaline Phosphatase 98 (38-126) U/L Serum Total Protein 6.2 L (6.3-8.2) g/dL Albumin 3.1 L (3.5-5.0) g/dL Micro Results-Entire Visit: Microbiology 05/12/23 23:21 Urine Culture - Final Urine, Void Klebsiella Pneumoniae - Procedures and Test Procedures and Tests throughout Hospitalization: Therapy Orders & Screens 05/13/23 07:30 EKG ROUTINE Comment: Diagnosis: Nausea, Vomiting, Diarrhea Discharge Exam General Appearance: no apparent distress, alert Neurologic Exam: alert, oriented x 3, cooperative, normal mood/affect, nml cerebellar function, sensation nml, No motor deficits Eye Exam: PERRL, EOMI, eyes nml inspection Ears, Nose, Throat Exam: normal ENT inspection, pharynx normal, moist mucous membranes Neck Exam: normal inspection, non-tender, supple, full range of motion Respiratory Exam: normal breath sounds, lungs clear, No respiratory distress Cardiovascular Exam: regular rate/rhythm, normal heart sounds Gastrointestinal/Abdomen Exam: soft, No tenderness, No mass Pelvic Exam: deferred Rectal Exam: deferred Back Exam: normal inspection, normal range of motion, No CVA tenderness, No vertebral tenderness Extremity Exam: normal inspection, normal range of motion Skin Exam: normal color, warm, dry Final Diagnosis/Problem List - Final Discharge Diagnosis/Problem (1) UTI (urinary tract infection) Current Visit: Yes Status: Acute Assessment & Plan: -UA suspicious for UTI, will treat empirically with ceftriaxone, follow cultures 05/15: -Ucult positive for klebsiella, continue oral abx cefdinir Code(s): N39.0 - URINARY TRACT INFECTION, SITE NOT SPECIFIED (2) Elevated troponin Current Visit: Yes Status: Acute Assessment & Plan: -uptrending, no chest pain, most likely secondary to infection -ECHO -peding being read by cardiology - EF 62% per tech -refuses tele -EKG- reviewed Code(s): R79.89 - OTHER SPECIFIED ABNORMAL FINDINGS OF BLOOD CHEMISTRY (3) Hypokalemia Current Visit: Yes Status: Acute Assessment & Plan: - K+ 3.1- replaced Code(s): E87.6 - HYPOKALEMIA (4) Hypomagnesemia Current Visit: Yes Status: Resolved Assessment & Plan: - resolved - Mg+ 1.8 Code(s): E83.42 - HYPOMAGNESEMIA (5) Hyponatremia Current Visit: Yes Status: Acute Assessment & Plan: - Na+ 128 - salt tab today - godinez not eat and drink well d/t dementia Code(s): E87.1 - HYPO-OSMOLALITY AND HYPONATREMIA (6) Nausea vomiting and diarrhea Current Visit: Yes Status: Resolved Assessment & Plan: - resolved Code(s): R11.2 - NAUSEA WITH VOMITING, UNSPECIFIED; R19.7 - DIARRHEA, UNSPECIFIED (7) Pneumocephalus Current Visit: Yes Status: Resolved Assessment & Plan: -MRI negative, neurology states no further intervention needed Code(s): G93.89 - OTHER SPECIFIED DISORDERS OF BRAIN (8) Syncope Current Visit: Yes Status: Acute Assessment & Plan: -Most likely secondary to dehydration -gentle hydration -EKG -UA suspicious for UTI - culture with Klebsiella, on cefdinir -Patient with advanced AD, poor oral consumption, multiple electrolyte deficiencies -Orthostatic vitals negative -Head CT showing pneumocphalus, MRI negative, no further workup needed per Neurololgy -ECHO - pending -PT/OT Code(s): R55 - SYNCOPE AND COLLAPSE (9) Transaminitis Current Visit: Yes Status: Resolved Assessment & Plan: - resolved Code(s): R74.01 - ELEVATION OF LEVELS OF LIVER TRANSAMINASE LEVELS (10) Alzheimer's dementia Current Visit: Yes Status: Chronic Assessment & Plan: -Noted, continue home meds Code(s): G30.9 - ALZHEIMER'S DISEASE, UNSPECIFIED; F02.80 - DEM IN OTH DIS CLASSD ELSWHR,UNSP SEV,W/O BEH/PSYCH/MOOD/ANX - Discharge Discharge Date: 05/17/23 (rehab) Disposition: XFER OTHER Condition: Stable Prescriptions: New Cefdinir [Omnicef 300 mg] 300 mg PO BID 5 Days #8 cap Continue Pantoprazole 20 mg [Protonix 20MG Tablet] 20 mg PO DAILY Levothyroxine Sodium 50 Mcg [Synthroid 50 Mcg] 50 mcg PO DAILY Donepezil HCl 10 mg [Aricept 10 MG] 10 mg PO DAILY Follow up with: REBECCA ARREDONDO MD [Primary Care Provider] - 05/24/23 1:45 pm
[2023-05-17 12:02] VITALS: BP 141/63; PULSE 78; TEMP 97.8; O2SAT 95
== END 2023-05-17 15:13 ==
LOC: ED 21:49 → MED SURG 05-13 00:34
PROVIDERS: ADMIT Student in an Organized Health Care Education/Training Program; ATTEND Student in an Organized Health Care Education/Training Program
DX: N39.0 Urinary tract infection, site not specified (principal); B96.1 Klebsiella pneumoniae [K. pneumoniae] as the cause of diseases classified elsewhere; R79.89 Other specified abnormal findings of blood chemistry; E87.6 Hypokalemia; E83.42 Hypomagnesemia; E87.1 Hypo-osmolality and hyponatremia; R11.2 Nausea with vomiting, unspecified; R19.7 Diarrhea, unspecified; G93.89 Other specified disorders of brain; R55 Syncope and collapse; R74.01 Elevation of levels of liver transaminase levels; G30.9 Alzheimer's disease, unspecified; F02.80 Dementia in other diseases classified elsewhere, unspecified severity, without behavioral disturbance, psychotic disturbance, mood disturbance, and anxiety; E78.5 Hyperlipidemia, unspecified; I10 Essential (primary) hypertension; Z79.899 Other long term (current) drug therapy; Z20.828 Contact with and (suspected) exposure to other viral communicable diseases
CPT/HCPCS: 0241U; 36000; 36415; 70450; 70551; 74176; 80053; 81001; 83690; 83735; 84132; 84484; 85025; 85027; 87077; 87086; 87186; 93005; 93306; 99285; Q3014; G0378; J0360; J0696; J2405; J3475; J3480; A9270-GY